=== PATIENT | male | born 1955 | race Caucasian/White ===

== ENCOUNTER 2018-08-28 09:57 | Outpatient (REF) | payer BC, SELFPAY ==
--- NOTE | 2018-08-28 09:10 | SKI_PTH ---
PATIENT: Nakul Tobin LOC: [facility] U#:[id number] AGE/SX: 63/M ROOM: RE08/28/[address]: Ti Cartagena DO : 1955 BED: DIS: 08/28/2018 SPEC #: [id number] RECD: 08/28/18 18:07 STATUS: [facility] REQ #: [id number] LEONCIO: 08/28/18 09:[address]: Ti Cartagena DEPT: Surgical Specimen RECD BY: Carol Bazan ENTERED: 08/28/18 18:07 SP TYPE: SKI OTHR DR: Rosi Santizo Tissues: 1 - SKIN BIOPSY(SHAVE/PUNCH) Procedures: SKIN LEVEL 4 Comments: [id number]
== END 2018-08-28 10:17 ==
LOC: LBN 09:57
PROVIDERS: PCP Nurse Practitioner Family; Visit Provider Otolaryngology Otolaryngology/Facial Plastic Surgery
DX: C44.219 Basal cell carcinoma of skin of left ear and external auricular canal (principal)
CPT/HCPCS: 88305

== ENCOUNTER 2019-04-05 00:34 | Outpatient (CLI) | payer BC, SELFPAY ==
--- NOTE | 2019-04-05 14:24 | DI.CT_ITS ---
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 No evidence of acute intracranial hemorrhage, mass effect, or midline shift. The orbital structures are unremarkable. The temporal bone structures appear intact. Calvarium: Normal. Visualized Paranasal sinuses/Mastoids: Clear. IMPRESSION: Normal cranial CT. DATA REPOSITORY: All CT scans at this facility are submitted to the National Radiology Data Registry (NRDR) Dose Index Registry (DIR) with the [employer] (ACR). RADIATION OPTIMIZATION: All CT scans at this facility use at least one of these dose optimization te chniques: automated exposure control; mA and/or kV adjustment per patient size (includes targeted exa ms where dose is matched to clinical indication); or iterative reconstruction.
== END 2019-04-05 00:54 ==
PROVIDERS: PCP Nurse Practitioner Family; Visit Provider Internal Medicine
DX: M25.50 Pain in unspecified joint (principal); H69.80 Other specified disorders of Eustachian tube, unspecified ear; J32.9 Chronic sinusitis, unspecified
CPT/HCPCS: 70450

== ENCOUNTER 2019-12-28 01:58 | Outpatient (CLI) | payer BC, SELFPAY ==
[2019-12-28 07:59] LABS: Abs Immature Grans 0.04 10^3/uL (0.0-0.06); Absolute Basophil Count 0.06 10^3/uL (0.0-0.2); Absolute Eosinophil Count 0.48 10^3/uL (0.0-0.7); Absolute Lymphocyte Count 2.38 10^3/uL (1.2-3.4); Absolute Monocyte Count 1.07 10^3/uL (0.1-0.8); Absolute Neutrophil Count 5.28 10^3/uL (1.2-6.7); Basophils % 0.6; Eosinophils % 5.2; HCT 41.8 % (40.0-50.0); HGB 14.5 g/dL (13.5-17.5); Immature Grans % 0.4; Lymphocytes % 25.6; MCH 32.1 pg (27.0-33.0); MCHC 34.7 % (32.0-36.0); MCV 92.5 fL (80-95); MPV 8.8 fL (8.0-11.0); Monocytes % 11.5; Neutrophils % 56.7; Nucleated RBC 0 %; Platelet Count 374 10^3/uL (130-400); RBC 4.52 10^6/uL (4.36-5.78); RDW 12.7 % (11.8-14.1); RDW-SD 43.4 fL; WBC 9.31 10^3/uL (4.4-10.8)
[2019-12-28 09:34] LABS: ALT 26 U/L (16-63); AST 17 U/L (15-37); Albumin 4.3 g/dL (3.4-5.0); Alkaline Phosphatase 58 U/L (46-116); Anion Gap 7.8 mmol/L (3-11); BUN 14 mg/dL (7-18); Bilirubin, Total 0.5 mg/dL (0.2-1.0); CO2 25.2 mmol/L (21.0-32.0); CREATININE 1.05 mg/dL (0.70-1.30); Calculated LDL 139 mg/dL (<100); Chloride 98 mmol/L (98-107); Cholesterol 203 mg/dL (<200); Folate 15.1 ng/mL (8.6-20.0); Glucose 104 mg/dL (74-106); HDL Cholesterol 54 mg/dL (40-60); Potassium 4.9 mmol/L (3.5-5.1); Sodium 131 mmol/L (136-145); Total Protein 6.6 g/dL (6.4-8.2); Triglyceride 54 mg/dL (<150); Vitamin B12 335 pg/mL (193-986)
[2019-12-28 09:46] LABS: C-Reactive Protein 0.13 mg/dL (0.0-0.3)
[2019-12-28 09:47] LABS: ESR 6 mm/hr (1-20)
[2019-12-31 12:26] LABS: Albumin 66.8 % (55.8-66.1); Total Protein 6.5 g/dL (6.3-8.2)
== END 2019-12-28 02:18 ==
PROVIDERS: PCP Nurse Practitioner Adult Health; Visit Provider Nurse Practitioner Adult Health
DX: R03.0 Elevated blood-pressure reading, without diagnosis of hypertension (principal); F10.10 Alcohol abuse, uncomplicated; R51 Headache; J34.89 Other specified disorders of nose and nasal sinuses
CPT/HCPCS: 36415; 80053; 80061; 85652; 82607; 82746; 84165; 85025; 86140

== ENCOUNTER 2020-01-23 01:08 | Outpatient (CLI) | payer BC, SELFPAY ==
[2020-01-23 10:55] LABS: Bilirubin Negative (Negative); Blood Negative (Negative); Clarity Clear (Clear); Glucose Negative (Negative); Ketones Negative (Negative); Leukocyte Esterase Negative (Negative); Nitrite Negative (Negative); Urobilinogen 0.2 EU/dL (Up TO 0.2)
[2020-01-23 11:49] LABS: Creatine Kinase 597 U/L (39-308); Sodium 131 mmol/L (136-145); TSH (W/Ref FT4) 0.65 uIU/mL (0.36-3.74); Uric Acid 4.3 mg/dL (3.5-7.2)
[2020-01-23 19:17] LABS: Rheumatoid Factor <8.6 IU/mL (<12.0)
[2020-01-24 15:59] LABS: ANA Interpretation Negative (Negative)
== END 2020-01-23 01:28 ==
PROVIDERS: PCP Nurse Practitioner Adult Health; Visit Provider Nurse Practitioner Adult Health
DX: R51.9 Headache, unspecified (principal); M79.10 Myalgia, unspecified site; M25.50 Pain in unspecified joint; G89.29 Other chronic pain; E87.1 Hypo-osmolality and hyponatremia; R77.8 Other specified abnormalities of plasma proteins; J34.89 Other specified disorders of nose and nasal sinuses
CPT/HCPCS: 36415; 82550; 81003; 84295; 84443; 84550; 86038; 86431

== ENCOUNTER 2020-02-11 08:44 | Day surgery (SDC) | payer BC, SELFPAY ==
[2020-02-11 08:54] VITALS: BP 154/86; PULSE 98; RESP 16; TEMP 36.3; O2SAT 100
--- NOTE | 2020-02-11 10:41 | SKI_PTH ---
PATIENT: Nakul Tobin LOC: [facility] U#:[id number] AGE/SX: 64/M ROOM: RE02/11/[address]: Jose A Salomon MD : 1955 BED: DIS: 02/11/2020 SPEC #: [id number] RECD: 02/11/20 16:41 STATUS: [facility] REQ #: [id number] LEONCIO: 02/11/20 10:[address]: Jose A Salomon DEPT: Surgical Specimen RECD BY: Carol Bazan ENTERED: 02/11/20 16:42 SP TYPE: NINA PATEL DR: Munira Lomax APRN Tissues: 1 - SKIN BIOPSY(SHAVE/PUNCH) Procedures: GROSS AND MICRO LEVEL 4 Comments: [id number]
[2020-02-11] MEDS: Lidocaine 2% Multi-Dose 50 ML VIAL (10:55)
--- NOTE | 2020-02-11 11:14 | PDOC.DSDIS_ITS ---
Discharge Plan Disposition Patient Disposition: HOME Condition: Good Discharge Details Reason For Visit: EXCISION MASS RRF Attending Provider: Jose A Salomon Primary Care Provider: Munira Lomax Home Meds and New Rx's Prescriptions: New ibuprofen 800 mg tablet 800 mg PO Q6H PRNQty: 14 RF: 0 No Action Advair HFA 115-21 mcg/actuation HFA aerosol inhaler 2 puff IH BID Qty: 12 RF: 11 albuterol sulfate [ProAir HFA] 8.5 GM HFA aerosol inhaler 2 puff Inhalation QID PRN RF: 0 Discharge Instructions Additional Instructions: Elevate R hand above heart level as much as possible overnite tonite. Wiggle fingers R hand 10 times/hour when awake to prevent swelling. Keep dressings dry and intact until return. Return to 's office in one week. May use R hand as much as your discomfort allows. Take ibuprofen as prescribed, for pain. Referrals: Jose A Salomon MD [ [facility] STAFF PHYSICIAN] - (f/u in one week.) Activity:: Activity as Tolerated Remove Dressings/Wound Care:: Do Not Remove Shower/Bathe:: Cover Diet:: As Tolerated Discharge Orders Discharge Orders: Discharge Order (Routine); Ordered 02/11/20 Ordered By: Jose A Salomon
--- NOTE | 2020-02-11 15:56 | ROE_ITS ---
Date of service: 02/11/20 Time of Service: 10:57 Operative Note Operative Note DATE OF PROCEDURE: 02/11/20 PRE-OP DIAGNOSIS: Subcutaneous mass right middle finger PROCEDURE: Excisional biopsy of subcutaneous mass dorsum of the right middle finger. SURGEON: Jsoe A Saloomn ANESTHESIA: local PATHOLOGY: other (Specimen consisting of the entire mass was sent for pathologic examination.) Patient was transported to: same day Patient's condition: stable Indications: This 64-year-old white male who developed a mass on the dorsum of his right middle finger some 3 years ago. As the mass enlarged he sought on a surgeon. An attempt at excision was made in 2018. He said the mass appeared to be recurring by the first postop visit. Continued to get larger over time. Not particularly painful. The mass appears to be subcutaneous and superficial to the extensor tendon over the proximal phalanx of the right middle finger. The mass does not interfere with function of the finger in flexion and extension. Mass was 2-1/2 cm x 2 cm x 2 cm. I felt that excisional biopsy was indicated. I thought that he may have a xanthoma of tendon sheath. I definitely thought it was a solid tumor clinically. Patient related that previous attempt at aspi ration was unsuccessful. Patient wished to have me proceed soon as possible. Procedure Description: Patient was taken the operating room on 02/11/2020 the right hand was prepped and draped free in usual sterile fashion. I infiltrated circumferentially around the mass on the dorsum of the right middle finger with 2% Xylocaine solution. I made an incision starting distal to the mass in the midline over the dorsum of the right ring finger. It began just proximal to the PIP joint. I then curved around the radial side of the mass with the incision and brought it back to the midline proximal to the mass incision was carried down to the extensor tendon. I then performed and excisional biopsy of the mass with sharp dissection to mobilize the soft tissues. I started proximally and peel the mass cleanly off the extensor tendon. I then proceeded to sharply dissect the mass from the overlying skin and subcutaneous tissue. Specimen was delivered for pathological examination. With epinephrine solution. Subcutaneous veins were cauterized. Skin edges were loosely approximated with horizontal mattress sutures interrupted 04 0 nylon suture material. Incision was dressed with Xeroform gauze followed by fluff gauze 4 x 4's between the fingers and around the right middle finger. This was followed by a 3 inch conform bandage and overwrapped with 2 inch Carlos bandage for compression. Patient taught procedure well and was discharged to the surge unit in good condition. Patient was discharged home from day surgery unit with instructions to try to elevate his right hand above heart level as much as possible overnight tonight. He is to keep his dressings intact and dry until he follows up with Dr. Salomon in 1 week for wound check. He is encouraged to wiggle his fingers 10 times an hour when awake. He may use his right hand is much as his discomfort allows. He should take Tylenol or ibuprofen for pain as needed.
== END 2020-02-11 11:35 | disposition home or self-care (01) ==
PROVIDERS: PCP Nurse Practitioner Adult Health; Visit Provider Orthopaedic Surgery
PROC: (CPT 11423; principal; 2020-02-11 10:45)
DX: D49.2 Neoplasm of unspecified behavior of bone, soft tissue, and skin (principal)
CPT/HCPCS: 11423; 88305

== ENCOUNTER 2020-04-09 02:44 | Outpatient (CLI) | payer BC, SELFPAY ==
[2020-04-09 08:16] LABS: Hemoglobin A1C 5.5 % (<5.7)
[2020-04-09 08:59] LABS: Creatine Kinase 312 U/L (39-308)
== END 2020-04-09 03:04 ==
PROVIDERS: PCP Nurse Practitioner Adult Health; Visit Provider Psychiatry & Neurology Neurology
DX: G62.9 Polyneuropathy, unspecified (principal); R74.8 Abnormal levels of other serum enzymes
CPT/HCPCS: 36415; 82550; 83036

== ENCOUNTER 2021-01-16 01:01 | Outpatient (CLI) | payer BC, SELFPAY ==
[2021-01-16 08:45] LABS: ALT 28 U/L (16-63); AST 19 U/L (15-37); Albumin 4.1 g/dL (3.4-5.0); Alkaline Phosphatase 68 U/L (46-116); Anion Gap 7.3 mmol/L (3-11); BUN 10 mg/dL (7-18); Bilirubin, Total 0.5 mg/dL (0.2-1.0); CO2 30.7 mmol/L (21.0-32.0); CREATININE 1.1 mg/dL (0.70-1.30); Chloride 97 mmol/L (98-107); Glucose 97 mg/dL (74-106); Sodium 135 mmol/L (136-145); TSH (W/Ref FT4) 0.72 uIU/mL (0.36-3.74); Total Protein 6.9 g/dL (6.4-8.2); Vitamin B12 311 pg/mL (193-986)
[2021-01-18 18:18] LABS: Anaplasma phagocytophilum Negative (Negative); B. miyamotoi PCR Negative (Negative); Babesia divergens/MO-1 Negative (Negative); Babesia duncani Negative (Negative); Babesia microti Negative (Negative); Ehrlichia chaffeensis Negative (Negative); Ehrlichia ewingii/canis Negative (Negative); Ehrlichia muris eauclairensis Negative (Negative)
[2021-01-19 11:51] LABS: Lyme Ab w Rflx to Lyme Confirm Negative (Negative)
== END 2021-01-16 01:02 | disposition home or self-care (01) ==
LOC: LBO 01:01
PROVIDERS: PCP Nurse Practitioner Adult Health; Visit Provider Nurse Practitioner Adult Health
DX: J44.9 Chronic obstructive pulmonary disease, unspecified; G62.9 Polyneuropathy, unspecified; E87.1 Hypo-osmolality and hyponatremia; R51.9 Headache, unspecified; F10.10 Alcohol abuse, uncomplicated; F17.200 Nicotine dependence, unspecified, uncomplicated; Z51.81 Encounter for therapeutic drug level monitoring
CPT/HCPCS: 36415; 80053; 87798; 82607; 82746; 84443; 86618

== ENCOUNTER → 2021-07-20 10:49 | Outpatient (BNVA) | payer MEDICARE, SELFPAY | PROVIDERS: PCP Nurse Practitioner Adult Health; Referring Provider Nurse Practitioner Adult Health; Visit Provider Psychiatry & Neurology Neurology | DX: M54.2 Cervicalgia (principal); M25.511 Pain in right shoulder; M25.512 Pain in left shoulder; G62.9 Polyneuropathy, unspecified; F10.10 Alcohol abuse, uncomplicated; E87.1 Hypo-osmolality and hyponatremia; R74.8 Abnormal levels of other serum enzymes | CPT/HCPCS: 99214 ==

== ENCOUNTER → 2021-10-28 10:13 | Outpatient (BNVA) | payer MEDICARE, SELFPAY | PROVIDERS: PCP Nurse Practitioner Adult Health; Referring Provider Nurse Practitioner Adult Health; Visit Provider Psychiatry & Neurology Neurology | DX: M54.2 Cervicalgia (principal); M25.511 Pain in right shoulder; M25.512 Pain in left shoulder; G60.9 Hereditary and idiopathic neuropathy, unspecified; F10.10 Alcohol abuse, uncomplicated; R74.8 Abnormal levels of other serum enzymes; E87.1 Hypo-osmolality and hyponatremia | CPT/HCPCS: 99214 ==

== ENCOUNTER → 2022-03-09 15:06 | Outpatient (CLI) | payer MEDICARE, SELFPAY ==
--- NOTE | 2022-03-09 14:00 | DI.RAD_ITS ---
Exam(s) XR CHEST 2V PA LATERAL EXAM: XR CHEST 2V PA LATERAL CLINICAL HISTORY: evaluate for pathology R05.3 CHRONIC COUGH TECHNIQUE: 2D digital imaging was performed of the chest. Two images were obtained. PA and lateral views were obtained. COMPARISON: CR CHEST 2 VIEWS PA,LAT from 02/09/2011 CR CHEST 2 VIEWS PA,LAT from 12/01/2011 CR CHEST 2 VIEWS PA,LAT from 05/08/2014 FINDINGS: MEDIASTINUM: Normal. HEART: Normal. PULMONARY VASCULATURE: Normal. LUNGS: No focal consolidating infiltrates. There is unchanged scarring seen on the lateral view ante riorly. The lungs appear hyperinflated with flattened diaphragms consistent with underlying COPD. PLEURAL SPACE: No pleural effusion or pneumothorax. BONE:Within normal limits for the patient's age. OTHER FINDINGS:Normal. IMPRESSION: No acute pulmonary findings. DATA REPOSITORY: RADIATION DOSE DELIVERED:
== END ==
PROVIDERS: PCP Nurse Practitioner Adult Health; Visit Provider Nurse Practitioner Family
DX: R05.3 Chronic cough (principal)
CPT/HCPCS: 71046

== ENCOUNTER 2023-11-21 03:30 | Outpatient (CLI) | payer MEDICARE, SELFPAY ==
[2023-11-21 14:37] LABS: HCT 40.8 % (40.0-50.0); HGB 14.3 g/dL (13.5-17.5); MCH 33.2 pg (27.0-33.0); MCV 95 fL (80-95); MPV 8.3 fL (8.0-11.0); Platelet Count 385 10^3/uL (130-400); RBC 4.31 10^6/uL (4.36-5.78); RDW 12.8 % (11.8-14.1); RDW-SD 44.7 fL; WBC 10.42 10^3/uL (4.4-10.8)
[2023-11-21 14:50] LABS: Anion Gap 9.3 mmol/L (3-11); BUN 14 mg/dL (7-18); CO2 26.7 mmol/L (21.0-32.0); CREATININE 1.3 mg/dL (0.70-1.30); Calcium 9.1 mg/dL (8.5-10.1); Chloride 95 mmol/L (98-107); Estimated GFR 60.21 (mL/min/1.73m2); Glucose 176 mg/dL (74-106); Potassium 4.4 mmol/L (3.5-5.1); Sodium 131 mmol/L (136-145)
== END 2023-11-21 03:31 | disposition home or self-care (01) ==
LOC: LBO 03:30
PROVIDERS: PCP Nurse Practitioner Adult Health; Referring Provider Nurse Practitioner Family; Visit Provider Nurse Practitioner Family
DX: J44.9 Chronic obstructive pulmonary disease, unspecified (principal); Z01.818 Encounter for other preprocedural examination
CPT/HCPCS: 36415; 80048; 85027

== ENCOUNTER 2024-01-20 14:50 | Outpatient (CLI) | payer MEDICARE, SELFPAY ==
--- NOTE | 2024-01-20 14:48 | DI.RAD_ITS ---
Exam(s) XR CERVICAL SP MCCULLOUGH TRAUMA 2-3V EXAM: XR CERVICAL SP MCCULLOUGH TRAUMA 2-3V CLINICAL HISTORY: SPASTICITY R25.2 SPINAL STENOSIS CERVICAL W/ RADICULOPATHY M48.0 M54.12. TECHNIQUE: 2D digital imaging was performed. Three views. AP and lateral views in flexion and exte nsion. COMPARISON: No exams were available for comparison FINDINGS: BONES: No fracture or destructive lesion. Vertebral bodies show endplate osteophytes. Facet degenera tive changes throughout. DISKS: Moderate disc space narrowing at C5-6 and C6-7. ALIGNMENT: Limited range of motion with flexion or extension. No evidence of subluxation. Straighte elizabet of the normal cervical lordosis wrote lordosis secondary to degenerative changes. SOFT TISSUE: Normal. The lung apices are clear. IMPRESSION: Degenerative disc changes and facet degenerative changes. Limited range of motion. DATA REPOSITORY: RADIATION DOSE DELIVERED:
== END 2024-01-20 15:10 ==
LOC: DI 14:50
PROVIDERS: PCP Nurse Practitioner Adult Health; Visit Provider Neurological Surgery
DX: R25.2 Cramp and spasm (principal); M48.02 Spinal stenosis, cervical region
CPT/HCPCS: 72040

== ENCOUNTER 2024-02-01 05:11 | Outpatient (CLI) | payer MEDICARE, SELFPAY ==
[2024-02-03 13:25] LABS: Sodium 133 mmol/L (136-145)
== END 2024-02-01 05:12 | disposition home or self-care (01) ==
LOC: LBO 05:11
PROVIDERS: PCP Nurse Practitioner Adult Health; Visit Provider Neurological Surgery
DX: G45.9 Transient cerebral ischemic attack, unspecified (principal)
CPT/HCPCS: 36415; 84295

== ENCOUNTER 2024-08-07 15:43 | Outpatient (CLI) | payer MEDICARE, SELFPAY ==
--- NOTE | 2024-08-07 14:45 | DI.RAD_ITS ---
Exam(s) XR CHEST 2V PA LATERAL EXAM: XR CHEST 2V PA LATERAL CLINICAL HISTORY: Known lung Ca, acute dypsnea R06.00 TECHNIQUE: 2D digital imaging was performed of the chest. Two images were obtained. PA and lateral views were obtained. COMPARISON: CR XR CHEST 2V PA LATERAL from 03/09/2022 FINDINGS: MEDIASTINUM: Normal. HEART: Normal. PULMONARY VASCULATURE: Normal. LUNGS: The lungs are hyperinflated with flattened diaphragms consistent with underlying COPD. There is again seen scarring anteriorly in the chest on the lateral view. No focal consolidating infiltrat es are present. There is a question of a new ovoid density in the right upper lobe measuring 2 cm. PLEURAL SPACE: No pleural effusion or pneumothorax. BONE:Within normal limits for the patient's age. OTHER FINDINGS:Normal. IMPRESSION: 1. Question of a new 2 cm ovoid density in the right upper lobe. CT scan of the chest may be obtaine d for further evaluation. 2. No focal consolidating infiltrates are seen. 3. Underlying COPD. Unexpected findings DATA REPOSITORY: RADIATION DOSE DELIVERED:
== END 2024-08-07 16:03 ==
LOC: DI 15:44
PROVIDERS: PCP Nurse Practitioner Adult Health; Visit Provider Family Medicine
DX: R06.00 Dyspnea, unspecified (principal)
CPT/HCPCS: 71046

== ENCOUNTER 2024-08-10 11:42 | Emergency (ER) | payer MEDICARE, SELFPAY ==
[2024-08-10] VITALS (18 sets, daily range): BP systolic 122–179; BP diastolic 62–95; PULSE 88–110; RESP 5–28; TEMP 36.8; O2SAT 92–98
--- NOTE | 2024-08-10 11:45 | RT.EKG_ITS ---
APPROVED REPORT Exam: Resting ECG Reason for Exam: dyspnea Patient Location: E HR:105 bpm ECG Measurements Heart Rate 105 AXIS [place] 159 P 99 QRSd 133 QRS 63 QT 327 T 60 QTc 432 Conclusion Sinus tachycardia RBBB non specific st depressions no stemi
--- NOTE | 2024-08-10 11:45 | DI.CT_ITS ---
Exam(s) CT CHEST PE CTA EXAM: CT CHEST PE CTA CLINICAL HISTORY: sob. TECHNIQUE: Imaging Protocol: CT angiography of the chest was performed using pulmonary embolus katrina col. Multi planar reconstructions were performed. CONTRAST MATERIAL: Intravenous: Omnipaque 350 Contrast volume: 65 cc COMPARISON: CR XR CHEST 2V PA LATERAL from 03/09/2022 CR XR CHEST 2V PA LATERAL from 08/07/2024 FINDINGS: CHEST: PULMONARY ARTERIES: There are no intraluminal filling defects to suggest acute pulmonary emboli.No ev idence of pulmonary fracture LUNGS: There is a concerning nodule in the right upper lobe measuring 1.7 cm wide by 1.3 cm AP by 1.4 cm craniocaudal. This is noncalcified and appears spiculated. Some overlying infiltrate is noted. This nodule is suspicious for malignancy.. There are no nodules in the left lung. There are no ple ural effusions. MEDIASTINUM: There is a large central mediastinal mass which deviates the trachea towards the right s kirk and causes significant narrowing of the trachea. This mass in the mediastinum measures approxima tely 6.7 cm AP by 5 cm wide by 5 cm craniocaudal. There is slightly enlarged lymph nodes in the righ t hilum. There is no prominent subcarinal adenopathy. There is some circumferential thickening of t he esophagus.Partially visualized thyroid appears unremarkable. CARDIAC: Heart size is upper normal. There is no pericardial effusion.Caliber of the ascending thora cic aorta is minimally prominent measuring 3.8 cm. No dissection. No pericardial effusion. There is no significant shift of the interventricular septum. PARTIALLY VISUALIZED UPPERMOST ABDOMEN: No obvious findings OSSEOUS: No significant osseous lesions.No fractures.. IMPRESSION: 1. No evidence of acute pulmonary emboli. No evidence of pulmonary infarction.No pleural effusions. 2. However, there is a malignant appearing spiculated 17 x 13 x 14 mm nodule in the right upper lobe and there is a large central paratracheal mediastinal mass which significantly deviates the trachea t owards the right side and narrows the trachea. This is most probably a malignant mediastinal mass, p ossibly adenopathy possibly related to the right upper lobe lung nodule. 3. There is some circumferential thickening of the esophagus along a long segment of the esophagus. Report called by myself to ER physician 08/10/2024 at 2:11 p.m. RADIATION DOSE DELIVERED: 63.56mGy.cm Total DLP DATA REPOSITORY: All CT scans at this facility are submitted to the National Radiology Data Registry (NRDR) Dose Index Registry (DIR) with the [employer] (ACR). RADIATION OPTIMIZATION: All CT scans at this facility use at least one of these dose optimization te chniques: automated exposure control; mA and/or kV adjustment per patient size (includes targeted exa ms where dose is matched to clinical indication); or iterative reconstruction.
[2024-08-10] MEDS: Sodium Chloride 0.9% for Inhalation 3 ML VIAL (12:14)
[2024-08-10] MEDS: Albuterol/Ipratropium 3 ML UPD VIAL UPD ×3 (12:14)
[2024-08-10] MEDS: methylPREDNISolone SUCC 125 MG VIAL IVP (12:15)
[2024-08-10 12:24] LABS: Abs Immature Grans 0.24 10^3/uL (0.0-0.06); BE (Venous) 3 mmol/L (-2-3); Basophils % 0.2 %; HCO3 (Venous) 27 mmol/L (23-28); HCT 28.9 % (40.0-50.0); HGB 9.6 g/dL (13.5-17.5); MCHC 33.2 % (32.0-36.0); MCV 81 fL (80-95); MPV 7.4 fL (8.0-11.0); Monocytes % 6.6 %; Neutrophils % 89.2 %; O2 Sat (Venous) 72 %; RBC 3.55 10^6/uL (4.36-5.78); RDW 14.1 % (11.8-14.1); RDW-SD 41.5 fL; TCO2 (Venous) 26 mmol/L (24-29); WBC 24.42 10^3/uL (4.4-10.8); pCO2 (Venous) 41 mmHg (41-51); pH (Venous) 7.43 (7.31-7.41); pO2 (Venous) 39 mmHg
[2024-08-10 12:42] LABS: Absolute Basophil Count 0.05 10^3/uL (0.0-0.2); Absolute Lymphocyte Count 0.73 10^3/uL (1.2-3.4); Absolute Monocyte Count 1.61 10^3/uL (0.1-0.8); Absolute Neutrophil Count 21.78 10^3/uL (1.2-6.7)
[2024-08-10 12:54] LABS: ALT 32 U/L (16-63); AST 26 U/L (15-37); Albumin 2.9 g/dL (3.4-5.0); Alkaline Phosphatase 108 U/L (46-116); Anion Gap 10.1 mmol/L (3-11); BUN 14 mg/dL (7-18); Bilirubin, Total 0.4 mg/dL (0.2-1.0); CO2 25.9 mmol/L (21.0-32.0); CREATININE 0.8 mg/dL (0.70-1.30); Calcium 9.6 mg/dL (8.5-10.1); Chloride 90 mmol/L (98-107); Glucose 134 mg/dL (74-106); NT-proBNP 225 pg/mL (<300); Potassium 4.6 mmol/L (3.5-5.1); Sodium 126 mmol/L (136-145); Total Protein 7.2 g/dL (6.4-8.2); Troponin I 7 ng/L (<or=76)
[2024-08-10 12:58] LABS: Diff Comment Diff Reviewed; Platelet Count 652 10^3/uL (130-400); RBC Morphology Normal
[2024-08-10] MEDS: Normal Saline - Diluent 50 ML VIAL IJ (13:33)
[2024-08-10] MEDS: Omnipaque 350 MG/ML 100 ML BTL IJ (13:33)
--- NOTE | 2024-08-10 13:36 | W.ED.GENAD ---
Discharge Plan Disposition Patient Disposition: Transfer-Acute Inpatient Care Specific Acute Inpt Facility: [facility] Condition: Critical Discharge Details Clinical Impression: Metastatic non-small cell lung cancer, Mediastinal adenopathy, Breath shortness, Acquired tracheal stenosis, Tracheal obstruction Primary Care Provider: Munira Lomax ED Provider: Chapis Miller Home Meds and New Rx's Prescriptions: No Action magnesium oxide 400 mg magnesium tablet 400 mg PO DAILY pyridoxine (vitamin B6) 500 mg tablet 500 mg PO DAILY prednisone 20 mg tablet 20 mg PO DAILY 5 Days Qty: 5 0RF cyanocobalamin (vitamin B-12) 1,000 mcg capsule 1,000 mcg PO DAILY Qty: 90 3RF Rx Instructions: For Low-normal Vit B12 acetaminophen 325 mg tablet See Rx Instructions PO Q6H PRN Rx Instructions: Take 3 tablets orally every 6 hours PRN; diazepam 5 mg tablet 5 mg PO Q6H PRN (Reason: muscle spasm) baclofen 10 mg tablet 10 mg PO TID Patient Comments: [facility] [place] [facility] note jwo albuterol sulfate 90 mcg/actuation HFA aerosol inhaler 2 puff inhalation Q4H PRN (Reason: bronchospasm) Qty: 6.7 1RF Rx Instructions: 2 puffs inhalation Q4H PRN Shortness of breath or wheezing fluticasone propion-salmeterol [Advair HFA] 115-21 mcg/actuation HFA aerosol inhaler See Rx Instructions .ROUTE .COMPLEX Qty: 12 11RF Dose Instruction: INHALE TWO PUFFS BY MOUTH TWICE A DAY FOR COPD Rx Instructions: INHALE TWO PUFFS BY MOUTH TWICE A DAY FOR COPD HPI General Date/Time Provider Initiated Documentation: 08/10/24 11:45. Limitations to Documentation: no limitations. Information obtained by: patient and old records reviewed. HPI Narrative: 69-year-old gentleman with past medical history of metastatic non-small cell lung cancer currently on radiation therapy presents for evaluation of shortness of breath. He reports that he was feeling fine yesterday. Denies any fever. He denies any productive cough. He Reports That He used his inhalers multiple times and states he felt like it is as if he did not use them at all. He denies any chest pain. Related Data Home Medications ?Medication ?Instructions ?Recorded ?Confirmed cyanocobalamin (vitamin B-12) 1,000 mcg PO DAILY #90 caps 01/19/21 08/10/24 1,000 mcg capsule magnesium oxide 400 mg PO DAILY 11/17/23 08/10/24 pyridoxine (vitamin B6) 500 mg 500 mg PO DAILY 11/17/23 08/10/24 tablet acetaminophen 325 mg tablet See Rx Instructions PO Q6H PRN 01/30/24 08/10/24 diazepam 5 mg tablet 5 mg PO Q6H PRN muscle spasm 01/30/24 08/10/24 baclofen 10 mg tablet 10 mg PO TID 05/02/24 08/10/24 albuterol sulfate 90 mcg/actuation 2 puff inhalation Q4H PRN 08/07/24 08/10/24 aerosol inhaler bronchospasm #6.7 grams prednisone 20 mg tablet 20 mg PO DAILY 5 days #5 tabs 08/07/24 08/10/24 Advair HFA 115 mcg-21 See Rx Instructions .Route 08/08/24 08/10/24 mcg/actuation aerosol inhaler .COMPLEX #12 grams (fluticasone propion-salmeterol) Previous Rx's ?Medication ?Instructions ?Recorded cyanocobalamin (vitamin B-12) 1,000 mcg PO DAILY #90 caps 01/19/21 1,000 mcg capsule albuterol sulfate 90 mcg/actuation 2 puff inhalation Q4H PRN 08/07/24 aerosol inhaler bronchospasm #6.7 grams prednisone 20 mg tablet 20 mg PO DAILY 5 days #5 tabs 08/07/24 Advair HFA 115 mcg-21 See Rx Instructions .Route 08/08/24 mcg/actuation aerosol inhaler .COMPLEX #12 grams (fluticasone propion-salmeterol) Allergies Allergy/AdvReac Type Severity Reaction Status Date / Time Penicillins AdvReac yeast Verified 08/10/24 11:52 infection in mouth & open sores Tetracyclines AdvReac yeast Verified 08/10/24 11:52 infection in mouth & open sores General Stated Complaint: SOB RONI: 3 Exam Narrative Exam Narrative: review of Systems: All systems reviewed & are unremarkable except as noted in HPI and below Well-developed, appears uncomfortable hoarse voice, unable to speak in >1-2 words large mass over right lateral scalp Tachycardic Tachypnea with increased respiratory effort, prolonged expiratory phase with expiratory wheezing Course Vital Signs Vital signs: Vital Signs Temperature 36.8 C 08/10/24 11:45 Pulse 110 H 08/10/24 11:45 Respiratory Rate 20 08/10/24 11:45 Blood Pressure 170/83 H 08/10/24 11:45 Pulse Oximetry 96 08/10/24 11:45 Temperature 36.8 C 08/10/24 11:45 Temperature Source Oral 08/10/24 11:45 Pulse 110 H 08/10/24 11:45 Respiratory Rate 18 08/10/24 12:50 Respiratory Effort Short of Breath 08/10/24 12:50 Respiratory Depth Normal 08/10/24 12:50 Respiratory Pattern Normal 08/10/24 12:50 Blood Pressure 170/83 H 08/10/24 11:45 Blood Pressure Position Sitting 08/10/24 11:45 Pulse Oximetry 96 08/10/24 11:45 Oxygen Delivery Method Room Air 08/10/24 11:45 Oxygen Flow Rate 0 08/10/24 11:45 Lab/Test Results Lab/Test Results: Laboratory Tests Range/Units 08/10/24 12:15 WBC (4.4-10.8) 10^3/uL 24.42 H RBC (4.36-5.78) 10^6/uL 3.55 L Hgb (13.5-17.5) g/dL 9.6 L Hct (40.0-50.0) % 28.9 L MCV (80-95) fL 81 MCH (27.0-33.0) pg 27.0 MCHC (32.0-36.0) % 33.2 RDW (11.8-14.1) % 14.1 Plt Count (130-400) 10^3/uL 652 H MPV (8.0-11.0) fL 7.4 L Immature Gran % % 1.0 Neutrophils % % 89.2 Lymphocytes % % 3.0 Monocytes % % 6.6 Eosinophils % % 0.0 Basophils % % 0.2 Nucleated RBC % (0.0-0.3) % 0.0 Absolute Neutrophils (1.2-6.7) 10^3/uL 21.78 H Absolute Lymphocytes (1.2-3.4) 10^3/uL 0.73 L Absolute Monocytes (0.1-0.8) 10^3/uL 1.61 H Absolute Eosinophils (0.0-0.7) 10^3/uL 0.00 Absolute Basophils (0.0-0.2) 10^3/uL 0.05 RBC Morphology Normal VBG pH (7.31-7.41) 7.43 H VBG pCO2 (41-51) mmHg 41 VBG pO2 mmHg 39 VBG HCO3 (23-28) mmol/L 27 VBG Total CO2 (24-29) mmol/L 26 VBG O2 Saturation % 72 VBG Base Excess (-2-3) mmol/L 3 Sodium (136-145) mmol/L 126 L Potassium (3.5-5.1) mmol/L 4.6 Chloride (98-107) mmol/L 90 L Carbon Dioxide (21.0-32.0) mmol/L 25.9 Anion Gap (3-11) mmol/L 10.1 BUN (7-18) mg/dL 14 Creatinine (0.70-1.30) mg/dL 0.8 Est GFR (CKD-EPI 2020) (mL/min/1.73m2) 96.40 Glucose (74-106) mg/dL 134 H Calcium (8.5-10.1) mg/dL 9.6 Magnesium (1.8-2.4) mg/dL 2.0 Total Bilirubin (0.2-1.0) mg/dL 0.4 AST (15-37) U/L 26 ALT (16-63) U/L 32 Alkaline Phosphatase (46-116) U/L 108 Troponin I (<or=76) ng/L 7 NT-Pro-B Natriuret Pep (<300) pg/mL 225 Total Protein (6.4-8.2) g/dL 7.2 Albumin (3.4-5.0) g/dL 2.9 L Medical Decision Making Emergent evaluation of shortness of breath. Patient has known metastatic lung cancer on radiation therapy. Initial differential includes reactive airway, worsened malignancy, pulmonary embolism, postobstructive pneumonia. Patient has no acute symptoms. EKG reviewed and independently interpreted: Sinus tachycardia [address] changes, no STEMI. He is not hypoxic but working fairly hard to breathe. Bronchodilator treatments and steroids have been given. Will check lab work and get CT imaging. I have reviewed his most recent outpatient imaging and noted there are concerns for metastatic disease and worsened malignancy on last chest x-ray. Lab work reviewed, significant leukocytosis of 24. Hemoglobin 9.6 which is significantly lower than prior. He also has new hyponatremia of 126. Remainder of his electrolytes are unremarkable. Troponin and BNP are not elevated. Chest CT reviewed with the radiologist. There is concern for significant worsening of mediastinal mass that is causing rightward deviation and significant narrowing of the trachea, down to 1-2mm. Based on prior imaging report, this mass is almost doubled in size. With additional new lymphadenopathy noted. Patient has been evaluated by [facility] thoracic surgery. I have sent images and reached out to them for consultation and follow-up plan regarding the patient. On reassessment after the breathing treatment, the patient is feeling better, he still has hoarseness and change to his voice, but no additional tachypnea or respiratory distress is noted. Discussed wtih Dr. Puente, pulm interventionalist, at [facility] and medical policy specialist. Patient accepted for emergent ED transfer for management at [facility] given central airway obstruction. Recommend nebs, bipap as needed during transport. patient updated on plan. Transported emergently via product marketing specialist. Quality:SDOH Health Related Social Needs: No Data to Display PFSH All Active Problems (Updated 08/10/24 @ 15:45 by Chapis Miller MD) Tracheal obstruction (Acute) Acquired tracheal stenosis (Acute) Breath shortness (Acute) Acute dyspnea (Acute) High risk medication use (Acute 07/17/24) [facility] Hem Onc - Raoul Phelan MD Secondary malignant neoplasm of bone (Acute) 07/11/24 [facility] Rad Onc note Metastatic non-small cell lung cancer (Acute ~07/10/24) [facility] Thoracic Surg Subcutaneous nodule of head (Acute) Mediastinal adenopathy (Acute) Lung nodule (Acute) Abnormal findings on imaging test (Acute) Hoarseness, chronic (Acute) Cervical myelopathy (Acute) [facility] Neurosurgery 05/11/24 Pre-op exam (Acute) Axonal neuropathy (Acute) [facility] Neuro 07/21/23 IFG (impaired fasting glucose) (Acute) [facility] Neuro 07/21/23 Spinal stenosis, lumbar region with neurogenic claudication (Acute) [facility] Neurosurgery 06/20/23 Carpal tunnel syndrome on left (Acute) [facility] Neuro 06/10/23 Other spondylosis with radiculopathy, lumbar region (Acute) 2/1/24 Neurology, Dr Dewey. Pt had abnormal MRI lumbar spine Chronic bilateral low back pain with right-sided sciatica (Acute) [facility] Neuro-04/05/23 Cervical disc disorder with radiculopathy, cervicothoracic region (Acute) [facility] Neuro-04/05/23 S/P Laminoplasty 01/25/2024 at [facility] done by Dr.Ji-Suk Harsh Evans 03/09/24 F/U Neurosurgery Chronic myofascial pain (Chronic) Head, neck & shoulders Bilateral leg pain (Chronic) Peripheral neuropathy; ?PAD, ABIs-->normal 02/2021 (see scanned) Actinic keratosis due to exposure to sunlight (Acute) Derm manages; L helix, L nose Pressure in head (Chronic) Neck and shoulder pain (Chronic) Peripheral neuropathy (Chronic) RX Gabapentin Tendon xanthoma (Acute) Right Middle Finger Hyponatremia (Acute) suspect chronic? 131 x3 in 2019 Frontal sinus pain (Acute) Chronic head pain (Chronic) Snoring (Chronic) No apnea. Elevated BP without diagnosis of hypertension (Acute) Basal cell carcinoma (BCC) of left ear (Chronic) Derm manages--L helix (path 08/28/2018); Dr. Cartagena; Dr. Wyatt magaña; wears hat Tobacco use disorder (Chronic) 2 PPD started in adolescense Alcohol abuse (Chronic) Beer; 2-4 servings per day COPD (chronic obstructive pulmonary disease) (Chronic) Long-term hx of nicotine Medical History (Updated 08/10/24 @ 15:45 by Chapis Miller MD) History of basal cell carcinoma (BCC) Dr. Schneider Spasticity [facility] Neuro Epidermal inclusion cyst Elevated CPK History of sciatica Intermittent since ~1980s; no recent flares History of broken nose Sinusitis ? related to Sinusitis Surgical History (Updated 05/15/24 @ 19:38 by Rossana Rodriguez) H/O cervical spine surgery C3-6 Laminoplasty [facility] Neurosurgery S/P Mohs surgery for basal cell carcinoma (~04/21/23) L upper helical rim (ear) History of removal of cyst R middle finger; Ramirez History of surgical removal of skin lesion Basal cell L ear Family History Mother Breast cancer Dx'ed late 70s and survived Dementia From dementia Depression Maternal Grandfather Diabetes Grandson No problems noted. Father Unknown family medical history Social History Smoking/Tobacco Use Status: Current every day Tobacco: How many years used: 40 Quit status: not considering quitting Smoking risk assessment performed?: Yes Alcohol Intake: current Alcohol Intake frequency: 0-2 drinks per day Alcohol type: beer Drug use: Never Substance use type: does not use Adopted: No Caregiver/Support person: No Foster care: No Household members: spouse, children and other Details: Lives with (Nelly) and has 3 sons, youngest lives with him Housing: house Number of Children: 3 number of grandchildren: 2 Communication Needs: None and Corrective Lenses Education Level: high school Do you need help understanding health information?: Rarely current occupation: [employer], Self-Employed; [employer] license Pets and animals: Yes (2) Pets and animals: dog(s) Sexually active: Yes Do you think of yourself as: straight/heterosexual Current gender identity: male What is your relationship status?: How often do you talk on the phone with friends or family?: three or more times per week How often do you get together with friends or relatives?: three or more times per week Do you belong to any clubs or organized social groups?: no Panel score (0-1 are the most socially isolated patients): 2 What type of physical activity do you participate in: walking Duration: > 90 minutes/day Frequency: 5-6 times per week Special jonn needs: No Seatbelt use: sometimes Helmet use: No Drive intox or ride w/intox stock driver: No Do you feel safe at home: Yes Do you feel safe in your relationship?: Yes PAWSS Have you Been Recently Intoxicated or Drunk Within the Last 30 days?: No Have you Ever Experienced Previous Episodes of Alcohol Withdrawal?: No Have you ever Experienced Withdrawal Seizures?: No Have you ever Experienced Delirium Tremens(DT)s?: No Have you ever undergone Alcohol Rehabilitation Treatment (i.e, inpt ot outpatient treatment programs)?: No Have you ever Experienced Blackouts?: No Have you ever Combined Alcohol with other Downers within the last 90 days?: No Have you ever Combined Alcohol with any other Substance of Abuse during the last 90 days?: No Positive Blood Alcohol level on Presentation? [PCS.BAL]: No Evidence of Increased Autonomic Activity (i.e. HR>120, tremor, sweating, agitation, nausea)?: No Result: 0
[2024-08-10 14:12] LABS: Troponin I 6 ng/L (<or=76)
== END 2024-08-10 16:25 | disposition short-term general hospital (02) ==
PROVIDERS: Emergency Provider Emergency Medicine; PCP Nurse Practitioner Adult Health
DX: J39.8 Other specified diseases of upper respiratory tract (principal); D72.829 Elevated white blood cell count, unspecified; R06.02 Shortness of breath; C34.90 Malignant neoplasm of unspecified part of unspecified bronchus or lung; E87.1 Hypo-osmolality and hyponatremia; D64.9 Anemia, unspecified
CPT/HCPCS: 99285 ×2; 94640; 96374; 71275; 80053; 82805; 93005; 83735; 83880; 84484; 85025; 93010; J2919; J3490; J7620

== ENCOUNTER 2024-08-20 02:40 | Outpatient (CLI) | payer MEDICARE, SELFPAY ==
[2024-08-20 07:15] LABS: Abs Immature Grans 0.18 10^3/uL (0.0-0.06); Absolute Eosinophil Count 0.02 10^3/uL (0.0-0.7); Absolute Lymphocyte Count 1.16 10^3/uL (1.2-3.4); Absolute Neutrophil Count 13.79 10^3/uL (1.2-6.7); Basophils % 0.2 %; Eosinophils % 0.1 %; HCT 28.8 % (40.0-50.0); HGB 9.4 g/dL (13.5-17.5); Immature Grans % 1.1 %; Lymphocytes % 6.8 %; MCHC 32.6 % (32.0-36.0); MCV 83 fL (80-95); MPV 7.7 fL (8.0-11.0); Monocytes % 10.9 %; Neutrophils % 80.9 %; Platelet Count 516 10^3/uL (130-400); RBC 3.48 10^6/uL (4.36-5.78); RDW 15.2 % (11.8-14.1); RDW-SD 45.2 fL; WBC 17.04 10^3/uL (4.4-10.8)
[2024-08-20 07:17] LABS: Absolute Basophil Count 0.03 10^3/uL (0.0-0.2); Absolute Monocyte Count 1.86 10^3/uL (0.1-0.8)
[2024-08-20 07:35] LABS: Diff Comment Diff Reviewed; RBC Morphology Normal
[2024-08-20 07:57] LABS: ALT 34 U/L (16-63); AST 21 U/L (15-37); Albumin 2.5 g/dL (3.4-5.0); Alkaline Phosphatase 103 U/L (46-116); Anion Gap 5.9 mmol/L (3-11); BUN 12 mg/dL (7-18); Bilirubin, Total 0.4 mg/dL (0.2-1.0); CO2 27.1 mmol/L (21.0-32.0); Calcium 9.1 mg/dL (8.5-10.1); Chloride 94 mmol/L (98-107); Estimated GFR 81.98 (mL/min/1.73m2); FREE T4 1.04 ng/dL (0.76-1.46); Glucose 113 mg/dL (74-106); Magnesium 1.9 mg/dL (1.8-2.4); Potassium 4.1 mmol/L (3.5-5.1); Sodium 127 mmol/L (136-145); TSH 2.19 uIU/mL (0.36-3.74); Total Protein 6.5 g/dL (6.4-8.2)
== END 2024-08-20 02:41 | disposition home or self-care (01) ==
LOC: LBO 02:40
PROVIDERS: PCP Nurse Practitioner Adult Health; Visit Provider Internal Medicine Medical Oncology
DX: Z79.899 Other long term (current) drug therapy (principal); C34.11 Malignant neoplasm of upper lobe, right bronchus or lung; C79.51 Secondary malignant neoplasm of bone
CPT/HCPCS: 36415; 80053; 83735; 84439; 84443; 85025

== ENCOUNTER 2024-08-27 04:40 | Outpatient (CLI) | payer MEDICARE, SELFPAY ==
[2024-08-27 11:14] LABS: Abs Immature Grans 0.07 10^3/uL (0.0-0.06); Absolute Basophil Count 0.02 10^3/uL (0.0-0.2); Absolute Eosinophil Count 0.06 10^3/uL (0.0-0.7); Absolute Lymphocyte Count 0.89 10^3/uL (1.2-3.4); Absolute Monocyte Count 0.59 10^3/uL (0.1-0.8); Absolute Neutrophil Count 6.73 10^3/uL (1.2-6.7); Basophils % 0.2 %; Eosinophils % 0.7 %; HCT 27.4 % (40.0-50.0); Immature Grans % 0.8 %; Lymphocytes % 10.6 %; MCH 26.7 pg (27.0-33.0); MCHC 32.8 % (32.0-36.0); MCV 81 fL (80-95); Monocytes % 7.1 %; Neutrophils % 80.6 %; Platelet Count 396 10^3/uL (130-400); RBC 3.37 10^6/uL (4.36-5.78); RDW-SD 47.3 fL; WBC 8.36 10^3/uL (4.4-10.8)
[2024-08-27 11:30] LABS: ALT 35 U/L (16-63); AST 20 U/L (15-37); Albumin 2.6 g/dL (3.4-5.0); Alkaline Phosphatase 107 U/L (46-116); Anion Gap 4.8 mmol/L (3-11); BUN 15 mg/dL (7-18); Bilirubin, Total 0.2 mg/dL (0.2-1.0); CO2 26.2 mmol/L (21.0-32.0); CREATININE 0.9 mg/dL (0.70-1.30); Calcium 7.8 mg/dL (8.5-10.1); Chloride 96 mmol/L (98-107); Estimated GFR 93.03 (mL/min/1.73m2); Glucose 118 mg/dL (74-106); Magnesium 1.9 mg/dL (1.8-2.4); Potassium 4.4 mmol/L (3.5-5.1); Sodium 127 mmol/L (136-145); Total Protein 6.5 g/dL (6.4-8.2)
== END 2024-08-27 04:41 | disposition home or self-care (01) ==
LOC: LBO 04:40
PROVIDERS: PCP Nurse Practitioner Adult Health; Visit Provider Internal Medicine Medical Oncology
DX: C34.11 Malignant neoplasm of upper lobe, right bronchus or lung (principal); C79.51 Secondary malignant neoplasm of bone
CPT/HCPCS: 36415; 80053; 83735; 85025

== ENCOUNTER 2024-09-03 11:46 | Outpatient (CLI) | payer MEDICARE, SELFPAY ==
[2024-09-03 11:37] LABS: Abs Immature Grans 0.05 10^3/uL (0.0-0.06); Absolute Basophil Count 0.04 10^3/uL (0.0-0.2); Absolute Eosinophil Count 0.02 10^3/uL (0.0-0.7); Absolute Lymphocyte Count 1.03 10^3/uL (1.2-3.4); Absolute Monocyte Count 0.78 10^3/uL (0.1-0.8); Absolute Neutrophil Count 4.44 10^3/uL (1.2-6.7); Basophils % 0.6 %; Eosinophils % 0.3 %; HCT 26.2 % (40.0-50.0); HGB 8.5 g/dL (13.5-17.5); Immature Grans % 0.8 %; Lymphocytes % 16.2 %; MCH 26.8 pg (27.0-33.0); MCHC 32.4 % (32.0-36.0); MCV 83 fL (80-95); MPV 7.5 fL (8.0-11.0); Monocytes % 12.3 %; Neutrophils % 69.8 %; Platelet Count 408 10^3/uL (130-400); RBC 3.17 10^6/uL (4.36-5.78); RDW 16.7 % (11.8-14.1); RDW-SD 49.2 fL; WBC 6.36 10^3/uL (4.4-10.8)
[2024-09-03 11:54] LABS: Anisocytosis 1+; Diff Comment RBC Morph Reviewed; Hypochromasia 1+; Polychromasia Present
[2024-09-03 11:59] LABS: ALT 29 U/L (16-63); AST 18 U/L (15-37); Albumin 2.6 g/dL (3.4-5.0); Alkaline Phosphatase 106 U/L (46-116); Anion Gap 7.2 mmol/L (3-11); BUN 10 mg/dL (7-18); Bilirubin, Total 0.2 mg/dL (0.2-1.0); CO2 27.8 mmol/L (21.0-32.0); CREATININE 0.8 mg/dL (0.70-1.30); Calcium 8.6 mg/dL (8.5-10.1); Chloride 97 mmol/L (98-107); FREE T4 1.14 ng/dL (0.76-1.46); Glucose 112 mg/dL (74-106); Magnesium 1.8 mg/dL (1.8-2.4); Potassium 4.1 mmol/L (3.5-5.1); Sodium 132 mmol/L (136-145); TSH 0.47 uIU/mL (0.36-3.74); Total Protein 6.4 g/dL (6.4-8.2)
== END 2024-09-03 11:47 | disposition home or self-care (01) ==
LOC: LBO 11:46
PROVIDERS: PCP Nurse Practitioner Adult Health; Visit Provider Internal Medicine Medical Oncology
DX: Z79.899 Other long term (current) drug therapy (principal); C79.51 Secondary malignant neoplasm of bone; C34.11 Malignant neoplasm of upper lobe, right bronchus or lung
CPT/HCPCS: 36415; 80053; 83735; 84439; 84443; 85025

== ENCOUNTER 2024-09-11 02:38 | Outpatient (CLI) | payer MEDICARE, SELFPAY ==
[2024-09-11 07:38] LABS: Absolute Basophil Count 0.04 10^3/uL (0.0-0.2); Absolute Eosinophil Count 0.02 10^3/uL (0.0-0.7); Absolute Lymphocyte Count 1.77 10^3/uL (1.2-3.4); Absolute Monocyte Count 1.32 10^3/uL (0.1-0.8); Absolute Neutrophil Count 6.39 10^3/uL (1.2-6.7); Basophils % 0.4 %; Eosinophils % 0.2 %; HCT 29.6 % (40.0-50.0); HGB 9.5 g/dL (13.5-17.5); Lymphocytes % 18.4 %; MCH 26.9 pg (27.0-33.0); MCHC 32.1 % (32.0-36.0); MCV 84 fL (80-95); MPV 7.6 fL (8.0-11.0); Monocytes % 13.7 %; Neutrophils % 66.3 %; Platelet Count 337 10^3/uL (130-400); RBC 3.53 10^6/uL (4.36-5.78); RDW 17.8 % (11.8-14.1); RDW-SD 53.2 fL; WBC 9.64 10^3/uL (4.4-10.8)
[2024-09-11 08:13] LABS: ALT 20 U/L (16-63); AST 16 U/L (15-37); Albumin 2.6 g/dL (3.4-5.0); Alkaline Phosphatase 100 U/L (46-116); Anion Gap 6.9 mmol/L (3-11); BUN 10 mg/dL (7-18); Bilirubin, Total 0.4 mg/dL (0.2-1.0); CO2 26.1 mmol/L (21.0-32.0); CREATININE 0.8 mg/dL (0.70-1.30); Calcium 8.7 mg/dL (8.5-10.1); Chloride 97 mmol/L (98-107); Glucose 96 mg/dL (74-106); Potassium 4.5 mmol/L (3.5-5.1); Sodium 130 mmol/L (136-145); Total Protein 6.7 g/dL (6.4-8.2)
[2024-09-11 09:31] LABS: FREE T4 0.94 ng/dL (0.76-1.46); TSH 0.48 uIU/mL (0.36-3.74)
== END 2024-09-11 02:39 | disposition home or self-care (01) ==
LOC: LBO 02:38
PROVIDERS: PCP Nurse Practitioner Adult Health; Visit Provider Internal Medicine Medical Oncology
DX: C34.11 Malignant neoplasm of upper lobe, right bronchus or lung (principal); Z79.899 Other long term (current) drug therapy; C79.51 Secondary malignant neoplasm of bone
CPT/HCPCS: 36415; 80053; 83735; 84439; 84443; 85025

== ENCOUNTER 2024-09-17 04:24 | Outpatient (CLI) | payer MEDICARE, SELFPAY ==
[2024-09-17 14:07] LABS: Absolute Basophil Count 0.04 10^3/uL (0.0-0.2); Absolute Eosinophil Count 0.01 10^3/uL (0.0-0.7); Absolute Lymphocyte Count 1.07 10^3/uL (1.2-3.4); Absolute Monocyte Count 0.49 10^3/uL (0.1-0.8); Absolute Neutrophil Count 7.05 10^3/uL (1.2-6.7); Basophils % 0.5 %; Eosinophils % 0.1 %; HCT 26.4 % (40.0-50.0); HGB 8.6 g/dL (13.5-17.5); Immature Grans % 1.1 %; Lymphocytes % 12.2 %; MCH 26.9 pg (27.0-33.0); MCHC 32.6 % (32.0-36.0); MCV 83 fL (80-95); MPV 7.8 fL (8.0-11.0); Monocytes % 5.6 %; Neutrophils % 80.5 %; Platelet Count 316 10^3/uL (130-400); RDW 17.3 % (11.8-14.1); RDW-SD 51.5 fL; WBC 8.76 10^3/uL (4.4-10.8)
[2024-09-17 14:37] LABS: ALT 24 U/L (16-63); AST 16 U/L (15-37); Albumin 2.6 g/dL (3.4-5.0); Alkaline Phosphatase 107 U/L (46-116); Anion Gap 8.5 mmol/L (3-11); BUN 14 mg/dL (7-18); Bilirubin, Total 0.2 mg/dL (0.2-1.0); CO2 26.5 mmol/L (21.0-32.0); CREATININE 0.9 mg/dL (0.70-1.30); Calcium 8.2 mg/dL (8.5-10.1); Chloride 94 mmol/L (98-107); Estimated GFR 93.03 (mL/min/1.73m2); Glucose 191 mg/dL (74-106); Magnesium 1.5 mg/dL (1.8-2.4); Potassium 4.1 mmol/L (3.5-5.1); Sodium 129 mmol/L (136-145); TSH 0.44 uIU/mL (0.36-3.74); Total Protein 6.5 g/dL (6.4-8.2)
== END 2024-09-17 04:25 | disposition home or self-care (01) ==
PROVIDERS: PCP Nurse Practitioner Adult Health; Visit Provider Internal Medicine Medical Oncology
DX: Z79.899 Other long term (current) drug therapy (principal); C79.51 Secondary malignant neoplasm of bone; C34.11 Malignant neoplasm of upper lobe, right bronchus or lung
CPT/HCPCS: 36415; 80053; 83735; 84439; 84443; 85025

== ENCOUNTER 2024-09-24 02:02 | Outpatient (CLI) | payer MEDICARE, SELFPAY ==
--- NOTE | 2024-09-24 | DI.CT_ITS ---
Exam(s) CT CHEST W EXAM: CT CHEST W CLINICAL HISTORY: Primary malignant neoplasm of RUL lung, C34.11, mets to bone, C79.51, Stage TECHNIQUE: Imaging Protocol: Axial computed tomography images with coronal and sagittal reformatted images were created and reviewed. Computer aided detection (CAD) was utilized. CONTRAST MATERIAL: Intravenous: Omnipaque 350Contrast volume:70 mL. COMPARISON: CR XR CHEST 2V PA LATERAL from 08/07/[address] CHEST PE CTA from 08/10/2024 FINDINGS: Tracheobronchial tree: There has been interval placement of a stent in the distal trachea in extendin g into the right and left mainstem bronchi. No evidence of bronchiectasis. Pulmonary parenchyma: Emphysematous changes are present in the lungs. There are new peripheral opaci ties in the left lingula. There is scarring again seen in the right upper lobe. The previously seen nodule in the right upper lobe has been replaced with the cystic lesion measuring 1.5 cm. There is again seen a perifissural nodule associated with the right middle lobe. There is scarring seen in th e inferior aspect of the right upper lobe. There is a new area of consolidation in the medial aspect of the right middle lobe. Scattered reticular nodular infiltrates are seen in the paramediastinal r egions of the lungs bilaterally. Mediastinum and Priti: The previously seen mediastinal mass has shown significant decrease in size com pared to the prior examination. Residual soft tissue in this area now measures 2.2 x 2.3 x 2.6 cm. This compares to 6.7 x 5.0 x 5.0 cm on the prior examination. No new mediastinal adenopathy is prese nt. There is mild diffuse thickening of the wall of the esophagus through its entire length. Thyroid gland: There is a tiny 4 mm hypodensity in the right lobe of the thyroid gland. No follow-up is recommended. Pleura: No effusion or pneumothorax. Heart: The heart is not dilated. Coronary artery calcifications are present. No pericardial effusion . Aorta: Thoracic aorta non-dilated. Atherosclerotic calcification is present. Pulmonary arteries: Due to the timing of the bolus, segmental and subsegmental pulmonary artery evalu ation is suboptimal. No large central pulmonary embolism is present. Upper abdomen: There are few tiny hypodensities seen in the liver. They are too small for further c haracterization but likely reflect small cysts. There is a 1.8 x 1.2 cm right hypodense adrenal nodu le. There also appears to be some nodularity of the left adrenal gland. Lymph nodes: Within normal limits. Bones: Within normal limits for the patient's age. The bones are unchanged compared to the prior exa mination no pathologic fractures are identified. Tubes, Catheters, and Lines: Soft tissues: Unremarkable. IMPRESSION: 1. Since the prior examination, there has been marked decrease in size of the mediastinal mass, the r ight upper lobe pulmonary nodule now has the appearance of a cyst or necrotic lesion and no new thora cic adenopathy is present. This likely reflects post therapy changes. 2. Small opacities seen in the medial aspect of the right middle lobe and left lingula with the mild reticular nodular infiltrate seen in the paramediastinal soft tissues. This may reflect post therapy changes. Acute infectious/inflammatory process cannot be excluded. Please correlate clinically. 3. Bilateral adrenal nodules. CT scan or MRI of the abdomen should be considered for further evaluat ion. These may represent adrenal adenomas. Metastatic disease should also be considered. 4. Interval placement of a stent in the distal trachea and extending into the right and left mainstem bronchi. RADIATION DOSE DELIVERED: 110.79mGy.cm Total DLP DATA REPOSITORY: All CT scans at this facility are submitted to the National Radiology Data Registry (NRDR) Dose Index Registry (DIR) with the [employer] (ACR). RADIATION OPTIMIZATION: All CT scans at this facility use at least one of these dose optimization te chniques: automated exposure control; mA and/or kV adjustment per patient size (includes targeted exa ms where dose is matched to clinical indication); or iterative reconstruction.
[2024-09-24] MEDS: Normal Saline - Diluent 50 ML VIAL IJ (14:13)
[2024-09-24] MEDS: Omnipaque 350 MG/ML 100 ML BTL 70 ML IJ (14:15)
== END 2024-09-24 02:22 ==
LOC: DI 02:02
PROVIDERS: PCP Nurse Practitioner Adult Health; Visit Provider Nurse Practitioner Family
DX: C34.11 Malignant neoplasm of upper lobe, right bronchus or lung (principal); C79.51 Secondary malignant neoplasm of bone
CPT/HCPCS: 71260; J3490

== ENCOUNTER 2024-10-02 03:27 | Outpatient (CLI) | payer MEDICARE, SELFPAY ==
[2024-10-02 08:02] LABS: Abs Immature Grans 0.07 10^3/uL (0.0-0.06); Absolute Basophil Count 0.03 10^3/uL (0.0-0.2); Absolute Eosinophil Count 0.01 10^3/uL (0.0-0.7); Absolute Lymphocyte Count 2.55 10^3/uL (1.2-3.4); Absolute Monocyte Count 1.27 10^3/uL (0.1-0.8); Absolute Neutrophil Count 4.59 10^3/uL (1.2-6.7); Basophils % 0.4 %; Eosinophils % 0.1 %; HCT 33.2 % (40.0-50.0); HGB 10.6 g/dL (13.5-17.5); Immature Grans % 0.8 %; Lymphocytes % 29.9 %; MCH 28.1 pg (27.0-33.0); MCHC 31.9 % (32.0-36.0); MCV 88 fL (80-95); MPV 7.2 fL (8.0-11.0); Monocytes % 14.9 %; Neutrophils % 53.9 %; Platelet Count 291 10^3/uL (130-400); RBC 3.77 10^6/uL (4.36-5.78); RDW 21.7 % (11.8-14.1); RDW-SD 68.2 fL; WBC 8.52 10^3/uL (4.4-10.8)
[2024-10-02 08:41] LABS: Anisocytosis 2+; Diff Comment RBC Morph Reviewed
[2024-10-02 08:42] LABS: ALT 31 U/L (16-63); AST 20 U/L (15-37); Albumin 3.1 g/dL (3.4-5.0); Alkaline Phosphatase 99 U/L (46-116); Anion Gap 6.8 mmol/L (3-11); BUN 11 mg/dL (7-18); Bilirubin, Total 0.4 mg/dL (0.2-1.0); CO2 28.2 mmol/L (21.0-32.0); CREATININE 0.7 mg/dL (0.70-1.30); Calcium 8.7 mg/dL (8.5-10.1); Chloride 97 mmol/L (98-107); Estimated GFR 100.37 (mL/min/1.73m2); FREE T4 0.78 ng/dL (0.76-1.46); Glucose 85 mg/dL (74-106); Magnesium 2.1 mg/dL (1.8-2.4); Potassium 4.6 mmol/L (3.5-5.1); Sodium 132 mmol/L (136-145); Total Protein 7.1 g/dL (6.4-8.2)
== END 2024-10-02 03:28 | disposition home or self-care (01) ==
LOC: LBO 03:27
PROVIDERS: PCP Nurse Practitioner Adult Health; Visit Provider Internal Medicine Medical Oncology
DX: Z79.899 Other long term (current) drug therapy (principal); C34.11 Malignant neoplasm of upper lobe, right bronchus or lung; C79.51 Secondary malignant neoplasm of bone
CPT/HCPCS: 36415; 80053; 83735; 84439; 84443; 85025

== ENCOUNTER 2024-10-09 02:56 | Outpatient (CLI) | payer MEDICARE, SELFPAY ==
[2024-10-09 11:33] LABS: Abs Immature Grans 0.05 10^3/uL (0.0-0.06); Absolute Basophil Count 0.03 10^3/uL (0.0-0.2); Absolute Eosinophil Count 0.02 10^3/uL (0.0-0.7); Absolute Monocyte Count 0.47 10^3/uL (0.1-0.8); Absolute Neutrophil Count 5.17 10^3/uL (1.2-6.7); Basophils % 0.4 %; Eosinophils % 0.3 %; HCT 30.2 % (40.0-50.0); HGB 9.8 g/dL (13.5-17.5); Immature Grans % 0.7 %; Lymphocytes % 24.9 %; MCH 28.7 pg (27.0-33.0); MCHC 32.5 % (32.0-36.0); MCV 89 fL (80-95); MPV 7.8 fL (8.0-11.0); Monocytes % 6.2 %; Neutrophils % 67.5 %; Platelet Count 315 10^3/uL (130-400); RBC 3.41 10^6/uL (4.36-5.78); RDW-SD 66.4 fL; WBC 7.64 10^3/uL (4.4-10.8)
[2024-10-09 11:41] LABS: ALT 28 U/L (16-63); AST 20 U/L (15-37); Albumin 3.2 g/dL (3.4-5.0); Alkaline Phosphatase 103 U/L (46-116); Anion Gap 8.3 mmol/L (3-11); BUN 12 mg/dL (7-18); Bilirubin, Total 0.2 mg/dL (0.2-1.0); CO2 25.7 mmol/L (21.0-32.0); CREATININE 0.8 mg/dL (0.70-1.30); Calcium 8.7 mg/dL (8.5-10.1); Chloride 97 mmol/L (98-107); Glucose 126 mg/dL (74-106); Magnesium 1.9 mg/dL (1.8-2.4); Potassium 4.2 mmol/L (3.5-5.1); Sodium 131 mmol/L (136-145); Total Protein 6.8 g/dL (6.4-8.2)
[2024-10-09 11:58] LABS: Anisocytosis 1+
== END 2024-10-09 02:57 | disposition home or self-care (01) ==
PROVIDERS: PCP Nurse Practitioner Adult Health; Visit Provider Internal Medicine Medical Oncology
DX: C34.11 Malignant neoplasm of upper lobe, right bronchus or lung (principal); C79.51 Secondary malignant neoplasm of bone
CPT/HCPCS: 36415; 80053; 83735; 85025

== ENCOUNTER 2024-10-22 03:37 | Outpatient (CLI) | payer MEDICARE, SELFPAY ==
[2024-10-22 08:37] LABS: Abs Immature Grans 0.02 10^3/uL (0.0-0.06); HCT 31.6 % (40.0-50.0); HGB 10.4 g/dL (13.5-17.5); Immature Grans % 0.3 %; MCH 30.0 pg (27.0-33.0); MCHC 32.9 % (32.0-36.0); MCV 91 fL (80-95); MPV 7.4 fL (8.0-11.0); Platelet Count 277 10^3/uL (130-400); RBC 3.47 10^6/uL (4.36-5.78); RDW 22.6 % (11.8-14.1); RDW-SD 73.1 fL; WBC 6.20 10^3/uL (4.4-10.8)
[2024-10-22 08:58] LABS: Anisocytosis 2+
[2024-10-22 09:00] LABS: ALT 27 U/L (16-63); AST 21 U/L (15-37); Albumin 3.3 g/dL (3.4-5.0); Alkaline Phosphatase 92 U/L (46-116); Anion Gap 9.2 mmol/L (3-11); BUN 14 mg/dL (7-18); Bilirubin, Total 0.5 mg/dL (0.2-1.0); CO2 25.8 mmol/L (21.0-32.0); Calcium 9.0 mg/dL (8.5-10.1); Chloride 94 mmol/L (98-107); Estimated GFR 96.40 (mL/min/1.73m2); Glucose 127 mg/dL (74-106); Magnesium 2.0 mg/dL (1.8-2.4); Potassium 4.6 mmol/L (3.5-5.1); Sodium 129 mmol/L (136-145); TSH 0.47 uIU/mL (0.36-3.74); Total Protein 7.0 g/dL (6.4-8.2)
== END 2024-10-22 03:38 | disposition home or self-care (01) ==
LOC: LBO 03:37
PROVIDERS: PCP Nurse Practitioner Adult Health; Visit Provider Internal Medicine Medical Oncology
DX: Z79.899 Other long term (current) drug therapy (principal); C34.11 Malignant neoplasm of upper lobe, right bronchus or lung; C79.51 Secondary malignant neoplasm of bone
CPT/HCPCS: 36415; 80053; 83735; 84439; 84443; 85025

== ENCOUNTER 2024-10-26 00:24 | Outpatient (CLI) | payer MEDICARE, SELFPAY ==
--- NOTE | 2024-10-26 07:15 | DI.US_ITS ---
Exam(s) US SOFT TISSUE HEAD OR NECK EXAM: US SOFT TISSUE HEAD OR NECK CLINICAL HISTORY: h/o metastatic squamous cell ca,r22.0,subcutaneous mass of head. TECHNIQUE: Ultrasound was performed using standard protocol. COMPARISON: No exams were available for comparison FINDINGS: Images from ultrasound examination of the right-side of the skull/scalp are submitted for interpretation. These images reveal adjacent/contiguous scalp masses which are hyperemic and 1 of these masses appears to invade the calvarium-skull. These masses measure approximately 2.8 x 1.1 x 3.2 cm and 1.7 x 1.1 x 2.2 cm. IMPRESSION: Right-sided scalp masses measure probably metastatic given their appearance and this patient's medical history . DATA REPOSITORY:
== END 2024-10-26 00:44 ==
LOC: DI 00:25
PROVIDERS: PCP Nurse Practitioner Adult Health; Visit Provider Nurse Practitioner Adult Health
DX: R22.0 Localized swelling, mass and lump, head (principal)
CPT/HCPCS: 76536

== ENCOUNTER 2024-10-29 03:08 | Outpatient (CLI) | payer MEDICARE, SELFPAY ==
[2024-10-29 11:50] LABS: Abs Immature Grans 0.06 10^3/uL (0.0-0.06); HCT 30.2 % (40.0-50.0); HGB 10.1 g/dL (13.5-17.5); Immature Grans % 1.0 %; MCH 31.0 pg (27.0-33.0); MCHC 33.4 % (32.0-36.0); MCV 93 fL (80-95); MPV 7.8 fL (8.0-11.0); Platelet Count 319 10^3/uL (130-400); RBC 3.26 10^6/uL (4.36-5.78); RDW 21.6 % (11.8-14.1); RDW-SD 72.4 fL; WBC 6.27 10^3/uL (4.4-10.8)
[2024-10-29 12:05] LABS: Anisocytosis 2+
[2024-10-29 12:47] LABS: ALT 28 U/L (16-63); AST 23 U/L (15-37); Albumin 3.5 g/dL (3.4-5.0); Alkaline Phosphatase 104 U/L (46-116); Anion Gap 8.8 mmol/L (3-11); BUN 10 mg/dL (7-18); Bilirubin, Total 0.2 mg/dL (0.2-1.0); CO2 25.2 mmol/L (21.0-32.0); Calcium 9.0 mg/dL (8.5-10.1); Chloride 94 mmol/L (98-107); Estimated GFR 96.40 (mL/min/1.73m2); Glucose 144 mg/dL (74-106); Magnesium 1.9 mg/dL (1.8-2.4); Potassium 4.1 mmol/L (3.5-5.1); Sodium 128 mmol/L (136-145); TSH 0.40 uIU/mL (0.36-3.74); Total Protein 7.1 g/dL (6.4-8.2)
== END 2024-10-29 03:09 | disposition home or self-care (01) ==
LOC: LBO 03:08
PROVIDERS: PCP Nurse Practitioner Adult Health; Visit Provider Internal Medicine Medical Oncology
DX: Z79.899 Other long term (current) drug therapy (principal); C79.51 Secondary malignant neoplasm of bone
CPT/HCPCS: 36415; 80053; 83735; 84439; 84443; 85025

== ENCOUNTER 2024-11-12 03:55 | Outpatient (CLI) | payer MEDICARE, SELFPAY ==
[2024-11-12 08:35] LABS: Abs Immature Grans 0.02 10^3/uL (0.0-0.06); HCT 31.8 % (40.0-50.0); HGB 10.5 g/dL (13.5-17.5); Immature Grans % 0.3 %; MCH 30.8 pg (27.0-33.0); MCHC 33.0 % (32.0-36.0); MCV 93 fL (80-95); MPV 7.7 fL (8.0-11.0); Platelet Count 229 10^3/uL (130-400); RBC 3.41 10^6/uL (4.36-5.78); RDW 21.4 % (11.8-14.1); RDW-SD 73.0 fL; WBC 6.91 10^3/uL (4.4-10.8)
[2024-11-12 08:44] LABS: Anisocytosis 2+
[2024-11-12 08:50] LABS: ALT 23 U/L (16-63); AST 19 U/L (15-37); Albumin 3.4 g/dL (3.4-5.0); Alkaline Phosphatase 85 U/L (46-116); Anion Gap 10.2 mmol/L (3-11); BUN 9 mg/dL (7-18); Bilirubin, Total 0.3 mg/dL (0.2-1.0); CO2 24.8 mmol/L (21.0-32.0); Calcium 8.8 mg/dL (8.5-10.1); Chloride 96 mmol/L (98-107); Estimated GFR 96.40 (mL/min/1.73m2); Glucose 121 mg/dL (74-106); Magnesium 1.9 mg/dL (1.8-2.4); Potassium 4.7 mmol/L (3.5-5.1); Sodium 131 mmol/L (136-145); Total Protein 7.0 g/dL (6.4-8.2)
== END 2024-11-12 03:56 | disposition home or self-care (01) ==
LOC: LBO 03:55
PROVIDERS: PCP Nurse Practitioner Adult Health; Visit Provider Internal Medicine Medical Oncology
DX: C79.51 Secondary malignant neoplasm of bone (principal); C34.11 Malignant neoplasm of upper lobe, right bronchus or lung
CPT/HCPCS: 36415; 80053; 83735; 85025

== ENCOUNTER 2024-12-03 04:09 | Outpatient (CLI) | payer MEDICARE, SELFPAY ==
[2024-12-03 12:16] LABS: Abs Immature Grans 0.03 10^3/uL (0.0-0.06); HCT 32.1 % (40.0-50.0); HGB 10.8 g/dL (13.5-17.5); Immature Grans % 0.4 %; MCH 32.2 pg (27.0-33.0); MCHC 33.6 % (32.0-36.0); MCV 96 fL (80-95); MPV 7.3 fL (8.0-11.0); Platelet Count 357 10^3/uL (130-400); RBC 3.35 10^6/uL (4.36-5.78); RDW 18.2 % (11.8-14.1); RDW-SD 64.0 fL; WBC 8.21 10^3/uL (4.4-10.8)
[2024-12-03 12:57] LABS: ALT 20 U/L (16-63); AST 18 U/L (15-37); Albumin 3.6 g/dL (3.4-5.0); Alkaline Phosphatase 82 U/L (46-116); Anion Gap 5.0 mmol/L (3-11); BUN 10 mg/dL (7-18); Bilirubin, Total 0.2 mg/dL (0.2-1.0); CO2 29.0 mmol/L (21.0-32.0); Calcium 9.1 mg/dL (8.5-10.1); Chloride 95 mmol/L (98-107); Estimated GFR 100.37 (mL/min/1.73m2); Glucose 105 mg/dL (74-106); Magnesium 2.0 mg/dL (1.8-2.4); Potassium 4.9 mmol/L (3.5-5.1); Sodium 129 mmol/L (136-145); TSH 0.47 uIU/mL (0.36-3.74); Total Protein 7.1 g/dL (6.4-8.2)
== END 2024-12-03 04:10 | disposition home or self-care (01) ==
LOC: LBO 04:09
PROVIDERS: PCP Nurse Practitioner Adult Health; Visit Provider Internal Medicine Medical Oncology
DX: Z79.899 Other long term (current) drug therapy (principal); C34.11 Malignant neoplasm of upper lobe, right bronchus or lung; C79.51 Secondary malignant neoplasm of bone
CPT/HCPCS: 36415; 80053; 83735; 84439; 84443; 85025

== ENCOUNTER 2024-12-24 08:59 | Outpatient (CLI) | payer MEDICARE, SELFPAY ==
[2024-12-24 12:38] LABS: Abs Immature Grans 0.06 10^3/uL (0.0-0.06); HCT 34.9 % (40.0-50.0); HGB 11.7 g/dL (13.5-17.5); Immature Grans % 0.5 %; MCH 31.9 pg (27.0-33.0); MCHC 33.5 % (32.0-36.0); MCV 95 fL (80-95); MPV 7.5 fL (8.0-11.0); Platelet Count 412 10^3/uL (130-400); RBC 3.67 10^6/uL (4.36-5.78); RDW 14.6 % (11.8-14.1); RDW-SD 51.1 fL; WBC 11.06 10^3/uL (4.4-10.8)
[2024-12-24 13:16] LABS: ALT 22 U/L (16-63); AST 18 U/L (15-37); Albumin 3.6 g/dL (3.4-5.0); Alkaline Phosphatase 87 U/L (46-116); Anion Gap 5.4 mmol/L (3-11); BUN 10 mg/dL (7-18); Bilirubin, Total 0.3 mg/dL (0.2-1.0); CO2 29.6 mmol/L (21.0-32.0); Calcium 9.0 mg/dL (8.5-10.1); Chloride 92 mmol/L (98-107); Estimated GFR 73.12 (mL/min/1.73m2); Glucose 195 mg/dL (74-106); Magnesium 2.0 mg/dL (1.8-2.4); Potassium 4.5 mmol/L (3.5-5.1); Sodium 127 mmol/L (136-145); TSH 0.40 uIU/mL (0.36-3.74); Total Protein 7.4 g/dL (6.4-8.2)
== END 2024-12-24 09:00 | disposition home or self-care (01) ==
LOC: LBO 09:00
PROVIDERS: PCP Nurse Practitioner Adult Health; Visit Provider Internal Medicine Medical Oncology
DX: Z79.899 Other long term (current) drug therapy (principal); C34.11 Malignant neoplasm of upper lobe, right bronchus or lung
CPT/HCPCS: 36415; 80053; 83735; 84439; 84443; 85025

== ENCOUNTER 2025-01-02 13:27 | Outpatient (CLI) | payer MEDICARE, SELFPAY ==
--- NOTE | 2025-01-02 15:30 | DI.RAD_ITS ---
Exam(s) XR CHEST 2V PA LATERAL EXAM: XR CHEST 2V PA LATERAL CLINICAL HISTORY: r/o PNA, COPD, HX OF NICOTINE USE, LUNG CANCER, J44.9 ,Z54.891, R09.89. TECHNIQUE: 2D digital imaging was performed. COMPARISON: CR XR CHEST 2V PA LATERAL from 08/07/[address] CHEST PE CTA from 08/10/[address] CHEST W from 09/24/2024 FINDINGS: 2 views: Heart size is normal. The mediastinum is not widened. Previously described density in the right upper lobe is actually less evident on the present study when compared to July 2024. there were, however, abnormal findings in the right upper lobe seen on recent chest CT scans. There are no obvious infiltrates nor pleural effusions on today's plain films. IMPRESSION: No acute pulmonary findings.However, given the findings on prior CT scans of might be prudent to repeat CT scan for more accuracy. DATA REPOSITORY: RADIATION DOSE DELIVERED:
== END 2025-01-02 13:47 ==
LOC: DI 02-15 13:27
PROVIDERS: PCP Nurse Practitioner Adult Health; Visit Provider Nurse Practitioner Adult Health
DX: J44.9 Chronic obstructive pulmonary disease, unspecified (principal); R09.89 Other specified symptoms and signs involving the circulatory and respiratory systems; C34.90 Malignant neoplasm of unspecified part of unspecified bronchus or lung; Z87.891 Personal history of nicotine dependence
CPT/HCPCS: 71046

== ENCOUNTER 2025-01-06 21:50 | Observation (INO) | payer MEDICARE, SELFPAY ==
[2025-01-06] VITALS (14 sets, daily range): BP systolic 155–166; BP diastolic 78–93; PULSE 85–99; RESP 14–23; TEMP 36.6; O2SAT 97–100
--- NOTE | 2025-01-06 21:45 | RT.EKG_ITS ---
APPROVED REPORT Exam: Resting ECG Reason for Exam: SOB Patient Location: E HR:92 bpm ECG Measurements Heart Rate 92 AXIS SC 141 P 85 QRSd 145 QRS 2 QT 382 T 17 QTc 472 Conclusion Sinus rhythm...normal P axis, V-rate 60- 99 Probable left atrial enlargement...P >50mS, <-0.10mV V1 Right bundle branch block...QRSd>120, terminal axis(90,270) There are no significant changes compared to prior EKG performed on 08/10/2024 at 11:45.
--- NOTE | 2025-01-06 22:03 | W.ED.GENAD ---
Discharge Plan Disposition Patient Disposition: Admit to [facility] Condition: Stable Discharge Details Clinical Impression: Hyponatremia Primary Care Provider: Munira Lomax ED Provider: Nikko Jean Baptiste Crozier Meds and New Rx's Prescriptions: No Action magnesium oxide 400 mg magnesium tablet 400 mg PO DAILY pyridoxine (vitamin B6) 500 mg tablet 500 mg PO DAILY cyanocobalamin (vitamin B-12) 1,000 mcg capsule 1,000 mcg PO DAILY Qty: 90 3RF Rx Instructions: For Low-normal Vit B12 acetaminophen 325 mg tablet See Rx Instructions PO Q6H PRN Rx Instructions: Take 3 tablets orally every 6 hours PRN; diazepam 5 mg tablet 5 mg PO Q6H PRN (Reason: muscle spasm) baclofen 10 mg tablet 10 mg PO TID Patient Comments: 05/02/24 from [facility] derm note jwo albuterol sulfate 90 mcg/actuation HFA aerosol inhaler 2 puff inhalation Q4H PRN (Reason: bronchospasm) Qty: 6.7 1RF Rx Instructions: 2 puffs inhalation Q4H PRN Shortness of breath or wheezing fluticasone propion-salmeterol [Advair HFA] 115-21 mcg/actuation HFA aerosol inhaler See Rx Instructions .ROUTE .COMPLEX Qty: 12 11RF Dose Instruction: INHALE TWO PUFFS BY MOUTH TWICE A DAY FOR COPD Rx Instructions: INHALE TWO PUFFS BY MOUTH TWICE A DAY FOR COPD guaifenesin 1,200 mg tablet extended release 12hr 1,200 mg PO BID sodium chloride 3 % solution for nebulization 4 ml inhalation TID PRN prochlorperazine maleate [Compazine] 10 mg tablet 10 mg PO Q6H PRN ondansetron HCl 8 mg tablet 8 mg PO Q8H calcium carbonate-vitamin D3 600 mg-10 mcg (400 unit) tablet 1 tab PO BID carboplatin/nab-pacltaxel/pembrlizumab IV Patient Comments: 10/22/24 visit Rx Instructions: as directed by HEM/ONc azithromycin 250 mg tablet See Rx Instructions PO .COMPLEX Qty: 6 0RF Rx Instructions: take 500 mg today (day 1), then 250 mg for 4 days (days 2-5) PO prednisone 20 mg tablet 40 mg PO .daily in AM Qty: 10 0RF Rx Instructions: Sinuses and COPD HPI General Mode of arrival: ambulatory. Date/Time Provider Initiated Documentation: 01/06/25 21:58. Limitations to Documentation: no limitations. Information obtained by: patient, RN notes reviewed and old records reviewed. HPI Narrative: Patient presents to ED with complaint of shortness of breath, onset this afternoon and continuing into the evening. Feels like he is unable to get big enough breath in. Denies chest pain or pressure. Denies fever or cough. Was seen by primary care midweek because of runny nose, congestion, frontal headaches. Had a chest x-ray which was negative. Currently on a Z-Thomas. Today developed shortness of breath which she had not had previously. Denies any leg pain or leg swelling. Has metastatic cancer but no history of blood clots. Is followed by heme-onc at [facility]. Does report decreased appetite and some epigastric discomfort but no vomiting or diarrhea. Related Data Home Medications ?Medication ?Instructions ?Recorded ?Confirmed cyanocobalamin (vitamin B-12) 1,000 mcg PO DAILY #90 caps 01/19/21 01/06/25 1,000 mcg capsule magnesium oxide 400 mg PO DAILY 11/17/23 01/06/25 pyridoxine (vitamin B6) 500 mg 500 mg PO DAILY 11/17/23 01/06/25 tablet acetaminophen 325 mg tablet See Rx Instructions PO Q6H PRN 01/30/24 01/06/25 diazepam 5 mg tablet 5 mg PO Q6H PRN muscle spasm 01/30/24 01/06/25 baclofen 10 mg tablet 10 mg PO TID 05/02/24 01/06/25 albuterol sulfate 90 mcg/actuation 2 puff inhalation Q4H PRN 08/07/24 01/06/25 aerosol inhaler bronchospasm #6.7 grams Advair HFA 115 mcg-21 See Rx Instructions .Route 08/08/24 01/06/25 mcg/actuation aerosol inhaler .COMPLEX #12 grams (fluticasone propion-salmeterol) guaifenesin 1,200 mg tablet, 1,200 mg PO BID 08/13/24 01/06/25 extended release 12 hr sodium chloride 3 % for 4 ml inhalation TID PRN 08/13/24 01/06/25 nebulization calcium 600 mg (as 1 tab PO BID 08/20/24 01/06/25 carbonate)-vitamin D3 10 mcg (400 unit) tablet ondansetron HCl 8 mg tablet 8 mg PO Q8H 08/20/24 01/06/25 prochlorperazine maleate 10 mg 10 mg PO Q6H PRN 08/20/24 01/06/25 tablet (Compazine) carboplatin/nab-pacltaxel/pembrlizumab IV 10/22/24 01/02/25 azithromycin 250 mg tablet See Rx Instructions PO .COMPLEX #6 01/02/25 01/06/25 tabs prednisone 20 mg tablet 40 mg (2 x 20 mg) PO .daily in AM 01/02/25 01/06/25 #10 tabs Previous Rx's ?Medication ?Instructions ?Recorded cyanocobalamin (vitamin B-12) 1,000 mcg PO DAILY #90 caps 01/19/21 1,000 mcg capsule albuterol sulfate 90 mcg/actuation 2 puff inhalation Q4H PRN 08/07/24 aerosol inhaler bronchospasm #6.7 grams Advair HFA 115 mcg-21 See Rx Instructions .Route 08/08/24 mcg/actuation aerosol inhaler .COMPLEX #12 grams (fluticasone propion-salmeterol) azithromycin 250 mg tablet See Rx Instructions PO .COMPLEX #6 01/02/25 tabs prednisone 20 mg tablet 40 mg (2 x 20 mg) PO .daily in AM 01/02/25 #10 tabs Allergies Allergy/AdvReac Type Severity Reaction Status Date / Time Penicillins AdvReac yeast Verified 01/06/25 21:59 infection in mouth & open sores Tetracyclines AdvReac yeast Verified 01/06/25 21:59 infection in mouth & open sores General Stated Complaint: RespSymp RONI: 3 Exam Narrative Exam Narrative: Const: WDWN male in NAD. VS per triage. Neck: Supple. Trachea midline. Lungs: Normal respiratory effort. Lungs are clear tonight. Cor: RRR without murmur. Good radial pulses. GI: Soft/ND/NT. Neuro: A+O x 3. Normal speech, mentation, gait. Cranial nerves II - XII grossly intact. No gross motor or sensory deficit. Ext: No C/C/E. No calf tenderness. Course Vital Signs Vital signs: Vital Signs Temperature 97.8 F 01/06/25 21:52 Pulse 99 H 01/06/25 21:52 Respiratory Rate 20 01/06/25 21:52 Blood Pressure 166/93 H 01/06/25 21:52 Pulse Oximetry 97 01/06/25 21:52 Temperature 97.8 F 01/06/25 21:58 Temperature Source Oral 01/06/25 21:58 Pulse 99 H 01/06/25 21:58 Respiratory Rate 20 01/06/25 21:58 Blood Pressure 166/93 H 01/06/25 21:58 Blood Pressure Position Sitting 01/06/25 21:58 Pulse Oximetry 97 01/06/25 21:58 Oxygen Delivery Method Room Air 01/06/25 21:52 Oxygen Flow Rate 0 01/06/25 21:52 Pain Level 0 01/06/25 21:58 Medical Decision Making Patient presenting to ED complaint of shortness of breath started this afternoon and has persisted. He is on a Z-Thomas but had a negative chest x-ray earlier this week. Has been having frontal headaches, congestion, nasal discharge. Denies fever or cough. Denies chest pain. Has metastatic cancer so must consider possibility of PE. Given negative chest x-ray earlier this week and clear lungs tonight, we will proceed with CTA of the chest. EKG shows a right bundle branch block which is old. Will obtain laboratory studies including a single troponin given symptoms for over 6 hours now. 00:30 - Patient's labs are significant for a white count of 19.2, platelets 451, sodium 120. Typical sodium for this gentleman is 129 and he fluid restricts. He was placed on prednisone in addition to the azithromycin. I suspect the elevated white count and the low sodium are related to the prednisone. His kidney function is normal. His electrolytes otherwise unremarkable. Troponin is normal at 4. CTA shows no evidence of pulmonary embolus or infiltrates. He has some scarring and cavitary lesions which are unchanged. Abdominal pelvis CT is unremarkable. Patient could otherwise be discharged except for the significant hyponatremia. Will need to discontinue the prednisone. I have started him on saline at 100 and hour. I have discussed the patient with hospitalist for observation admission till sodium is at a safer level. I have discussed with the patient and who consent to admission. Medical Records Medical records reviewed: Yes I reviewed the patient's medical records. Medical records narrative: PCP and Heme-Onc notes Lab Data Lab results reviewed: Yes I reviewed the patient's lab results. Lab results narrative: see MDM ECG Data Attestation: I personally reviewed and interpreted this ECG (s) as follows: Prior ECG tracings: available for review Interpretation: see MDM/EKG PFSH All Active Problems (Updated 01/07/25 @ 00:28 by Nikko Jean Baptiste MD) Hyponatremia (Acute) Frontal headache (Acute) History of nicotine use (Acute) Intervertebral disc disorder with radiculopathy of lumbar region (Acute) [place] [facility] [place] Subcutaneous mass of head (Acute) High risk medication use (Acute 07/17/24) [facility] [place] - Raoul Phelan MD Secondary malignant neoplasm of bone (Acute) 07/11/24 [facility] [place] 08/20/24 f/u [facility] Hem/Onc Metastatic non-small cell lung cancer (Acute ~07/10/24) [facility] [place] Surg 08/20/24 F/U [facility] Hem/Onc Hoarseness, chronic (Acute) Cervical myelopathy (Acute) [facility] [place] 05/11/24 Axonal neuropathy (Acute) [facility] [place] 07/21/23 IFG (impaired fasting glucose) (Acute) [facility] [place] 07/21/23 Spinal stenosis, lumbar region with neurogenic claudication (Acute) [facility] [place] 06/20/23 Carpal tunnel syndrome on left (Acute) [facility] [place] 06/10/23 Other spondylosis with radiculopathy, lumbar region (Acute) 05/19/23 Neurology, Dr Dewey. Pt had abnormal MRI lumbar spine Chronic bilateral low back pain with right-sided sciatica (Acute) [facility] [place]05[place]23 Cervical disc disorder with radiculopathy, cervicothoracic region (Acute) [facility] [place]/05/23 S/P Laminoplasty 01/25/2024 [place] [facility] [place].Ji-Suk Harsh Evans 03/09/24 F/U Neurosurgery Bilateral leg pain (Chronic) Peripheral neuropathy; ?PAD, ABIs-->normal 02/2021 (see scanned) Actinic keratosis due to exposure to sunlight (Acute) Derm manages; L helix, L nose Peripheral neuropathy (Chronic) RX Gabapentin Tendon xanthoma (Acute) Right Middle Finger Elevated BP without diagnosis of hypertension (Acute) Basal cell carcinoma (BCC) of left ear (Chronic) Derm manages--L helix (path 08/28/2018); Dr. Cartagena; Dr. Wyatt magaña; wears hat Alcohol abuse (Chronic) Beer; 2-4 servings per day COPD (chronic obstructive pulmonary disease) (Chronic) Long-term hx of nicotine Medical History Snoring No apnea. Tobacco use disorder 2 PPD started in adolescense; quit 07/2024 Tracheal compression [place] [facility] [place] Chronic head pain Pressure in head Chronic myofascial pain Head, neck & shoulders Neck and shoulder pain Subcutaneous nodule of head Frontal sinus pain Hyponatremia suspect chronic? 131 x3 in 2019 History of basal cell carcinoma (BCC) Dr. Schneider Spasticity [facility] [place] Epidermal inclusion cyst Elevated CPK History of sciatica Intermittent since ~1980s; no recent flares History of broken nose Sinusitis ? related to Sinusitis Surgical History S/P bronchoscopy (~09/2024) 09/28/24 Bronchoscopy negative History of bronchoscopy 08/11/2024 by Interventional Pul[place] [facility] [place] debulking and placement of a Tracheal Y-stent. 09/25/24 [place] [facility] Therapeutic suctioning, tissue/tumor debulking and stent removal. H/O cervical spine surgery (~01/2024) C3-6 Laminoplasty [facility] [place] S/P Mohs surgery for basal cell carcinoma (~04/21/23) L upper helical rim (ear) History of removal of cyst R middle finger; Ramirez History of surgical removal of skin lesion Basal cell L ear Family History Mother Breast cancer Dx'ed late 70s and survived Dementia From dementia Depression Maternal Grandfather Diabetes Grandson No problems noted. Father Unknown family medical history Social History Smoking/Tobacco Use Status: Current every day Tobacco: How many years used: 40 Quit status: not considering quitting Smoking risk assessment performed?: Yes Alcohol Intake: current Alcohol Intake frequency: 0-2 drinks per day Alcohol type: beer Drug use: Never Substance use type: does not use Adopted: No Caregiver/Support person: No Foster care: No Household members: spouse, children and other Details: Lives with (Nelly) and has 3 sons, youngest lives with him Housing: house Number of Children: 3 number of grandchildren: 2 Communication Needs: None and Corrective Lenses Education Level: high school Do you need help understanding health information?: Rarely current occupation: [employer], Self-Employed; [employer] license Pets and animals: Yes (2) Pets and animals: dog(s) Sexually active: Yes Do you think of yourself as: straight/heterosexual Current gender identity: male What is your relationship status?: How often do you talk on the phone with friends or family?: three or more times per week How often do you get together with friends or relatives?: three or more times per week Do you belong to any clubs or organized social groups?: no Panel score (0-1 are the most socially isolated patients): 2 What type of physical activity do you participate in: walking Duration: > 90 minutes/day Frequency: 5-6 times per week Special jonn needs: No Seatbelt use: sometimes Helmet use: No Drive intox or ride w/intox local company refrigerated truck driver: No Do you feel safe at home: Yes Do you feel safe in your relationship?: Yes PAWSS Have you Been Recently Intoxicated or Drunk Within the Last 30 days?: No Have you Ever Experienced Previous Episodes of Alcohol Withdrawal?: No Have you ever Experienced Withdrawal Seizures?: No Have you ever Experienced Delirium Tremens(DT)s?: No Have you ever undergone Alcohol Rehabilitation Treatment (i.e, inpt ot outpatient treatment programs)?: No Have you ever Experienced Blackouts?: No Have you ever Combined Alcohol with other Downers within the last 90 days?: No Have you ever Combined Alcohol with any other Substance of Abuse during the last 90 days?: No Positive Blood Alcohol level on Presentation? [PCS.BAL]: No Evidence of Increased Autonomic Activity (i.e. HR>120, tremor, sweating, agitation, nausea)?: No Result: 0
--- NOTE | 2025-01-06 22:15 | DI.CT_ITS ---
Exam(s) CT CHEST PE ABD PELVIS W EXAM: CT CHEST PE ABD PELVIS W CLINICAL HISTORY: SOB onset this afternoon; metastatic CA. TECHNIQUE: Imaging Protocol: Axial computed tomography images with coronal and sagittal reformatted images were created and reviewed. Computer aided detection (CAD) was utilized. CONTRAST MATERIAL: Intravenous: Omnipaque 350 Contrast volume:75 ml Oral: / no COMPARISON: CT CT CHEST W from 09/24/2024 FINDINGS: CHEST: Pulmonary parenchyma: No consolidation. Right upper lobe scarring and small cavitary lesion are unchanged. There are mild emphysematous changes. Tracheobronchial tree: The previously noted tracheal and bronchial stents have been removed. Bronchial wall thickening in the right lower lobe.. Pleura: No effusion or pneumothorax. Mediastinum: Esophageal wall thickening again noted. Decreased size of previously noted mediastinal mass and adenopathy. Pulmonary arteries: No visible emboli. Cardiovascular: Coronary artery calcifications. No pericardial effusion. Thoracic aorta non-dilated. Bones: Unremarkable for age. No lytic or blastic lesions. No compression fractures. Soft tissues: Unremarkable. ABDOMEN and PELVIS: Liver: Normal density. No suspicious mass. Gallbladder and biliary tract: No evidence of stones or wall thickening. No biliary dilatation. Pancreas: Normal density, no abnormal calcifications or inflammatory process. Spleen: Normal. Kidneys: Normal size, contour and axis. No radiodense stones. No obstructive uropathy. No suspicious masses seen. Adrenal glands: No masses seen. Previously noted right adrenal nodule is not visible on today's exam. Aorta: Abdominal portion non-dilated. Atherosclerotic calcification. Lymph nodes: Within normal limits. Soft tissues: Small fat containing right inguinal hernia. Bladder: Overdistended but unremarkable. Bowel: No obstruction or bowel wall thickening. Appendix is normal. Increased stool in right side of colon. Peritoneal cavity: No ascites. No focal collection. No mesenteric inflammatory response. No free air. Bones: There are severe degenerative changes of both hips. There are severe degenerative changes of the lower lumbar spine. Reproductive organs: Unremarkable for age. IMPRESSION: No evidence of pulmonary emboli. Right upper lobe cystic area appears unchanged. Decreased size of previously noted mediastinal mass and adenopathy. Esophageal wall thickening again noted. No acute abnormality in the abdomen or pelvis. RADIATION DOSE DELIVERED: 329.09mGy.cm Total DLP DATA REPOSITORY: All CT scans at this facility are submitted to the National Radiology Data Registry (NRDR) Dose Index Registry (DIR) with the [employer] (ACR). RADIATION OPTIMIZATION: All CT scans at this facility use at least one of these dose optimization techniques: automated exposure control; mA and/or kV adjustment per patient size (includes targeted exams where dose is matched to clinical indication); or iterative reconstruction.
[2025-01-06] MEDS: Normal Saline 500 ML IV (22:30)
[2025-01-06 22:38] LABS: BE (Venous) 3 mmol/L (-2-3); HCO3 (Venous) 27 mmol/L (23-28); O2 Sat (Venous) 50 %; TCO2 (Venous) 25 mmol/L (24-29); pCO2 (Venous) 41 mmHg (41-51); pO2 (Venous) 27 mmHg
[2025-01-06 22:39] LABS: Abs Immature Grans 0.15 10^3/uL (0.0-0.06); HCT 32.1 % (40.0-50.0); HGB 11.3 g/dL (13.5-17.5); Immature Grans % 0.8 %; MCH 31.9 pg (27.0-33.0); MCHC 35.2 % (32.0-36.0); MCV 91 fL (80-95); MPV 7.4 fL (8.0-11.0); Platelet Count 451 10^3/uL (130-400); RBC 3.54 10^6/uL (4.36-5.78); RDW 13.2 % (11.8-14.1); RDW-SD 43.8 fL; WBC 19.16 10^3/uL (4.4-10.8)
--- NOTE | 2025-01-06 22:40 | NUR.NOTE ---
Nursing Note: Pt stated that since seeing provider he has developed a frontal lobe headache as well left ear pain, as well as wanting to let the provider know that his lymph nodes have been swollen for 1 month. Provider aware
[2025-01-06 22:59] LABS: ALT 94 U/L (16-63); AST 38 U/L (15-37); Albumin 3.1 g/dL (3.4-5.0); Alkaline Phosphatase 167 U/L (46-116); Anion Gap 6.3 mmol/L (3-11); BUN 13 mg/dL (7-18); Bilirubin, Total 0.4 mg/dL (0.2-1.0); CO2 27.7 mmol/L (21.0-32.0); Calcium 8.9 mg/dL (8.5-10.1); Chloride 86 mmol/L (98-107); Estimated GFR 100.37 (mL/min/1.73m2); Glucose 111 mg/dL (74-106); Magnesium 1.9 mg/dL (1.8-2.4); Potassium 4.5 mmol/L (3.5-5.1); Total Protein 7.1 g/dL (6.4-8.2); Troponin I 4 ng/L (<or=76)
[2025-01-06 23:03] LABS: Sodium 120 mmol/L (136-145)
[2025-01-06 23:06] LABS: RBC Morphology Normal
[2025-01-06] MEDS: Normal Saline Flush 10 ML SYR IVP (23:12)
[2025-01-06] MEDS: Normal Saline - Diluent 50 ML VIAL IJ (23:12)
[2025-01-06] MEDS: Omnipaque 350 MG/ML 100 ML BTL IJ (23:12)
[2025-01-07] VITALS (18 sets, daily range): BP systolic 139–169; BP diastolic 76–88; PULSE 89–98; RESP 14–22; TEMP 36.4–36.8; O2SAT 97–99
--- NOTE | 2025-01-07 00:07 | DI.VRAD_ITS ---
PROCEDURE INFORMATION: Exam: CTA Chest With Contrast Exam date and time: 01/06/2025 11:08 PM Age: 69 years old Clinical indication: Abdominal pain; Generalized; SOB onset this afternoon; Metastatic CA TECHNIQUE: Imaging protocol: Computed tomographic angiography of the chest with contrast. Exam focused on the arteries. Radiation optimization: All CT scans at this facility use at least one of these dose optimization techniques: automated exposure control; mA and/or kV adjustment per patient size (includes targeted exams where dose is matched to clinical indication); or iterative reconstruction. Contrast material: OMNIPAQUE 350; Contrast volume: 75 ml; Contrast route: INTRAVENOUS (IV); COMPARISON: CT CHEST PE CTA 08/10/2024 1:27 PM FINDINGS: Pulmonary arteries: No acute pulmonary embolus. Aorta: Atheromatous calcifications are present within the visualized thoracic aorta. Lungs: Subsegmental bronchial wall thickening is present within a branch of the right lower lobe airway, unchanged from the CT dated 09/24/2024. Focal bronchial wall thickening and mild bronchiectasis is present within a subsegmental airway within the anteromedial right lower lobe. No new pulmonary consolidation. Probable pulmonary scarring and cicatricial emphysema is present at the right apex. There is a cavitary lesion in the region of a previous pulmonary nodule on the comparison CT dated 08/10/2024. Findings have a similar appearance to the comparison CT dated 09/24/2024. Pleural spaces: No pleural effusion or pneumothorax. Heart: Heart is normal size. No pericardial effusion. Coronary arteries: There are scattered atheromatous coronary artery calcifications. Esophagus: There is moderate circumferential wall thickening of the esophagus. Lymph nodes: No enlarged lymph nodes. Bones/joints: Unremarkable. No acute fracture. Soft tissues: Unremarkable. IMPRESSION: 1. No pulmonary embolus. 2. Wall thickening of the esophagus. This is a nonspecific finding but can be associated with esophagitis. Neoplasm could also be considered in the differential. 3. Small multifocal regions of scarring or cavitary lesions within the lungs similar to the prior CT dated 09/24/2024. No new pulmonary consolidation or pulmonary metastasis. PROCEDURE INFORMATION: Exam: CT Abdomen And Pelvis With Contrast Exam date and time: 01/06/2025 11:08 PM Age: 69 years old Clinical indication: Abdominal pain; Generalized; SOB onset this afternoon; Metastatic CA TECHNIQUE: Imaging protocol: Computed tomography of the abdomen and pelvis with contrast. 3D rendering (Not supervised by radiologist): MIP and/or 3D reconstructed images were created by the technologist. Radiation optimization: All CT scans at this facility use at least one of these dose optimization techniques: automated exposure control; mA and/or kV adjustment per patient size (includes targeted exams where dose is matched to clinical indication); or iterative reconstruction. Contrast material: OMNIPAQUE 350; Contrast volume: 75 ml; Contrast route: INTRAVENOUS (IV); COMPARISON: CT CHEST W 09/24/2024 2:10 PM FINDINGS: Liver: The liver has a normal appearance. Gallbladder and biliary ducts: The gallbladder is unremarkable. No biliary ductal dilatation. Pancreas: The pancreas demonstrates normal size. No pancreatic ductal dilatation. Spleen: The spleen demonstrates normal size. Adrenal glands: The adrenal glands have a normal appearance. Kidneys and ureters: The kidneys are normal in size. No hydronephrosis. No hydroureter or ureterolithiasis. Stomach and bowel: The bowel demonstrates overall normal caliber and wall thickness. Appendix: The appendix is thin walled. Intraperitoneal space: Unremarkable. No free air. No significant fluid collection. Vasculature: There are scattered atheromatous calcifications throughout the aorta and iliac arteries. Lymph nodes: No enlarged lymph nodes. Urinary bladder: The bladder is thin walled and fluid filled. Reproductive: Unremarkable as visualized. Bones/joints: Severe degenerative changes are present at the hip joints, more severe on the right than on the left. No suspicious bony lesions. No acute fracture. Soft tissues: There is a small fat containing right inguinal hernia. IMPRESSION: No acute intra-abdominal findings. Dictated and Authenticated by: Mala Jones MD. Orderin Markel El MD
[2025-01-07] MEDS: Normal Saline 1,000 ML 100 ML IV (00:22)
--- NOTE | 2025-01-07 00:23 | W.PM.HP.N ---
Date of service: 01/07/25 Time of Service: 00:24 Assessment and Plan Assessment and plan (1) Hyponatremia: Start date: 01/06/25 Status: Acute Assessment and plan: This is a 69-year-old gentleman who has a history of recent respiratory symptoms finished his Zithromax with prednisone pulse at home. His increased shortness of breath is unclear with no acute findings on imaging have any history of metastatic non-small cell lung cancer on treatment. His recent labs do show mild hyponatremia chronically but this was worse sodium down to 120 in the ED. The patient is not confused. He will be admitted for gentle IV hydration and observation of his electrolytes hopefully normalized to his baseline. His shortness of breath is unclear with no acute infectious process evident. Prednisone might have worsened his hyponatremia but this also may be chronic with his lung cancer. If patient remains stable he could be discharged on his usual outpatient medical therapy and follow-up with [facility] heme-onc. He is a full code. (2) Metastatic non-small cell lung cancer: Status: Chronic Assessment and plan: Patient actively being treated and followed by [facility] heme-onc. (3) COPD (chronic obstructive pulmonary disease): Status: Chronic Assessment and plan: No apparent exacerbation presently in no acute pneumonia. Steroids and antibiotics will be held for now. Patient just finished a 5-day course of Zithromax/prednisone. History of Present Illness History of Present Illness Chief Complaint: Shortness of breath. Narrative: This is a 69-year-old male patient recently treated for COPD exacerbation with Zithromax and prednisone presented to the ED with increased shortness of breath not being able to take a deep breath. He has a history of metastatic non-small cell lung cancer stable on treatment with no history of thromboembolic events and a negative CT for PE upon this admission. He has had no fever. He has no white count and had a negative workup for PE in the ED with no evidence of infiltrate on imaging. He is not oxygen dependent. Patient denies any confusion or change in mentation but was found to have hyponatremia in the ED. He was initiated on normal saline infusion and this was thought to be secondary to prednisone treatment recently precipitated exacerbation. He also had an elevated WBC but no fever and no infiltrate on imaging as mentioned. He was not tachypneic. He had no respiratory symptoms other than feeling shortness of breath. Patient has finished his course of Zithromax and prednisone pulse these were not continued with patient being admitted for observation while trending his exacerbated hyponatremia which may be secondary to recent prednisone course. Patient is a full code. Review of Systems Narrative: 13 point review of systems otherwise unrevealing or stable. PFSH All Active Problems (Updated 01/07/25 @ 06:53 by Bashir Forte) Hyponatremia (Acute) Frontal headache (Acute) History of nicotine use (Acute) Intervertebral disc disorder with radiculopathy of lumbar region (Acute) 11/09/24 [facility] Neurosurgery note Subcutaneous mass of head (Acute) High risk medication use (Acute 07/17/24) [facility] Hem Onc - Raoul Phelan MD Secondary malignant neoplasm of bone (Acute) 07/11/24 [facility] Rad Onc note 08/20/24 f/u [facility] Hem/Onc Metastatic non-small cell lung cancer (Chronic ~07/10/24) [facility] Thoracic Surg 08/20/24 F/U [facility] Hem/Onc Hoarseness, chronic (Acute) Cervical myelopathy (Acute) [facility] Neurosurgery 05/11/24 Axonal neuropathy (Acute) [facility] Neuro 07/21/23 IFG (impaired fasting glucose) (Acute) [facility] Neuro 07/21/23 Spinal stenosis, lumbar region with neurogenic claudication (Acute) [facility] Neurosurgery 06/20/23 Carpal tunnel syndrome on left (Acute) [facility] Neuro 06/10/23 Other spondylosis with radiculopathy, lumbar region (Acute) 05/19/23 Neurology, Dr Dewey. Pt had abnormal MRI lumbar spine Chronic bilateral low back pain with right-sided sciatica (Acute) [facility] Neuro-04/05/23 Cervical disc disorder with radiculopathy, cervicothoracic region (Acute) [facility] Neuro-04/05/23 S/P Laminoplasty 01/25/2024 at [facility] done by Dr.Ji-Suk Hrash Evans 03/09/24 F/U Neurosurgery Bilateral leg pain (Chronic) Peripheral neuropathy; ?PAD, ABIs-->normal 02/2021 (see scanned) Actinic keratosis due to exposure to sunlight (Acute) Derm manages; L helix, L nose Peripheral neuropathy (Chronic) RX Gabapentin Tendon xanthoma (Acute) Right Middle Finger Elevated BP without diagnosis of hypertension (Acute) Basal cell carcinoma (BCC) of left ear (Chronic) Derm manages--L helix (path 08/28/2018); Dr. Cartagena; Dr. Wyatt magaña; wears hat Alcohol abuse (Chronic) Beer; 2-4 servings per day COPD (chronic obstructive pulmonary disease) (Chronic) Long-term hx of nicotine Medical History Snoring No apnea. Tobacco use disorder 2 PPD started in adolescense; quit 07/2024 Tracheal compression DX at [facility] 08/10/2024 Chronic head pain Pressure in head Chronic myofascial pain Head, neck & shoulders Neck and shoulder pain Subcutaneous nodule of head Frontal sinus pain Hyponatremia suspect chronic? 131 x3 in 2019 History of basal cell carcinoma (BCC) Dr. Schneider Spasticity [facility] Neuro Epidermal inclusion cyst Elevated CPK History of sciatica Intermittent since ~; no recent flares History of broken nose Sinusitis ? related to Sinusitis Surgical History S/P bronchoscopy (~09/2024) 09/28/24 Bronchoscopy negative History of bronchoscopy 08/11/2024 by Interventional Pulmonology at [facility] with tumor debulking and placement of a Tracheal Y-stent. 09/25/24 - [facility] Therapeutic suctioning, tissue/tumor debulking and stent removal. H/O cervical spine surgery (~01/2024) C3-6 Laminoplasty [facility] Neurosurgery S/P Mohs surgery for basal cell carcinoma (~04/21/23) L upper helical rim (ear) History of removal of cyst R middle finger; Ramirez History of surgical removal of skin lesion Basal cell L ear Family History Mother Breast cancer Dx'ed late 70s and survived Dementia From dementia Depression Maternal Grandfather Diabetes Grandson No problems noted. Father Unknown family medical history Social History Smoking/Tobacco Use Status: Current every day Tobacco: How many years used: 40 Quit status: not considering quitting Smoking risk assessment performed?: Yes Alcohol Intake: current Alcohol Intake frequency: 0-2 drinks per day Alcohol type: beer Drug use: Never Substance use type: does not use Adopted: No Caregiver/Support person: No Foster care: No Household members: spouse, children and other Details: Lives with (Nelly) and has 3 sons, youngest lives with him Housing: house Number of Children: 3 number of grandchildren: 2 Communication Needs: None and Corrective Lenses Education Level: high school Do you need help understanding health information?: Rarely current occupation: [employer], Self-Employed; [employer] license Pets and animals: Yes (2) Pets and animals: dog(s) Sexually active: Yes Do you think of yourself as: straight/heterosexual Current gender identity: male What is your relationship status?: How often do you talk on the phone with friends or family?: three or more times per week How often do you get together with friends or relatives?: three or more times per week Do you belong to any clubs or organized social groups?: no Panel score (0-1 are the most socially isolated patients): 2 What type of physical activity do you participate in: walking Duration: > 90 minutes/day Frequency: 5-6 times per week Special jonn needs: No Seatbelt use: sometimes Helmet use: No Drive intox or ride w/intox semi driver: No Do you feel safe at home: Yes Do you feel safe in your relationship?: Yes Meds Allergies and Home Medications Allergies Allergy/AdvReac Type Severity Reaction Status Date / Time Penicillins AdvReac yeast Verified 01/06/25 21:59 infection in mouth & open sores Tetracyclines AdvReac yeast Verified 01/06/25 21:59 infection in mouth & open sores Home Medications ?Medication ?Instructions ?Recorded ?Confirmed ?Type cyanocobalamin (vitamin B-12) 1,000 mcg PO DAILY #90 caps 01/19/21 01/06/25 Rx 1,000 mcg capsule magnesium oxide 400 mg PO DAILY 11/17/23 01/06/25 History pyridoxine (vitamin B6) 500 mg 500 mg PO DAILY 11/17/23 01/06/25 History tablet acetaminophen 325 mg tablet See Rx Instructions PO Q6H PRN 01/30/24 01/06/25 History diazepam 5 mg tablet 5 mg PO Q6H PRN muscle spasm 01/30/24 01/06/25 History baclofen 10 mg tablet 10 mg PO TID 05/02/24 01/06/25 History albuterol sulfate 90 mcg/actuation 2 puff inhalation Q4H PRN 08/07/24 01/06/25 Rx aerosol inhaler bronchospasm #6.7 grams Advair HFA 115 mcg-21 See Rx Instructions .Route 08/08/24 01/06/25 Rx mcg/actuation aerosol inhaler .COMPLEX #12 grams (fluticasone propion-salmeterol) guaifenesin 1,200 mg tablet, 1,200 mg PO BID 08/13/24 01/06/25 History extended release 12 hr sodium chloride 3 % for 4 ml inhalation TID PRN 08/13/24 01/06/25 History nebulization calcium 600 mg (as 1 tab PO BID 08/20/24 01/06/25 History carbonate)-vitamin D3 10 mcg (400 unit) tablet ondansetron HCl 8 mg tablet 8 mg PO Q8H 08/20/24 01/06/25 History prochlorperazine maleate 10 mg 10 mg PO Q6H PRN 08/20/24 01/06/25 History tablet (Compazine) carboplatin/nab-pacltaxel/pembrlizumab IV 10/22/24 01/02/25 History azithromycin 250 mg tablet See Rx Instructions PO .COMPLEX #6 01/02/25 01/06/25 Rx tabs prednisone 20 mg tablet 40 mg (2 x 20 mg) PO .daily in AM 01/02/25 01/06/25 Rx #10 tabs Exam Narrative Exam Narrative: General: Patient appears appropriate for age, in no acute distress and alert and oriented x 3. HEENT: Normocephalic with large soft round tumor over his right parietal scalp which he states is chronic. Eyes with pupils equal and reactive light specially, extraocular movement intact and sclera anicteric. Oropharynx with moist mucosa and fair dentition. Neck: Supple without JVD. Back: Normal posture, no CVA tenderness. Lungs: Fair aeration and clear to auscultation percussion with no focalizing rales or rhonchi. No expiratory wheeze. Heart: Regular rate and rhythm with no murmur or gallop appreciated. Abdomen: Normal contour, soft and nontender to palpation with no palpable hepatosplenomegaly. No guarding or rebound. Positive quadrants. Genitalia/rectal: Exam deferred. Skin: Normal color, warm and dry. Extremities: Without clubbing, cyanosis or pitting edema. Peripheral pulses intact. Neuro: Cranial nerves II through XII gross intact, no focalized motor deficits and no tremor. Psych: Normal affect and mood. No abnormal thought processes. Remote and recent memory intact. Results Imaging Imaging Studies: Exam: CTA Chest With Contrast Exam date and time: 01/06/2025 11:08 PM Age: 69 years old Clinical indication: Abdominal pain; Generalized; SOB onset this afternoon; Metastatic CA COMPARISON: CT CHEST PE CTA 08/10/2024 1:27 PM FINDINGS: Pulmonary arteries: No acute pulmonary embolus. Aorta: Atheromatous calcifications are present within the visualized thoracic aorta. Lungs: Subsegmental bronchial wall thickening is present within a branch of the right lower lobe airway, unchanged from the CT dated 09/24/2024. Focal bronchial wall thickening and mild bronchiectasis is present within a subsegmental airway within the anteromedial right lower lobe. No new pulmonary consolidation. Probable pulmonary scarring and cicatricial emphysema is present at the right apex. There is a cavitary lesion in the region of a previous pulmonary nodule on the comparison CT dated 08/10/2024. Findings have a similar appearance to the comparison CT dated 09/24/2024. Pleural spaces: No pleural effusion or pneumothorax. Heart: Heart is normal size. No pericardial effusion. Coronary arteries: There are scattered atheromatous coronary artery calcifications. Esophagus: There is moderate circumferential wall thickening of the esophagus. Lymph nodes: No enlarged lymph nodes. Bones/joints: Unremarkable. No acute fracture. Soft tissues: Unremarkable. IMPRESSION: 1. No pulmonary embolus. 2. Wall thickening of the esophagus. This is a nonspecific finding but can be associated with esophagitis. Neoplasm could also be considered in the differential. 3. Small multifocal regions of scarring or cavitary lesions within the lungs similar to the prior CT dated 09/24/2024. No new pulmonary consolidation or pulmonary metastasis. PROCEDURE INFORMATION: Exam: CT Abdomen And Pelvis With Contrast Exam date and time: 01/06/2025 11:08 PM Age: 69 years old Clinical indication: Abdominal pain; Generalized; SOB onset this afternoon; Metastatic CA COMPARISON: CT CHEST W 09/24/2024 2:10 PM FINDINGS: Liver: The liver has a normal appearance. Gallbladder and biliary ducts: The gallbladder is unremarkable. No biliary ductal dilatation. Pancreas: The pancreas demonstrates normal size. No pancreatic ductal dilatation. Spleen: The spleen demonstrates normal size. Adrenal glands: The adrenal glands have a normal appearance. Kidneys and ureters: The kidneys are normal in size. No hydronephrosis. No hydroureter or ureterolithiasis. Stomach and bowel: The bowel demonstrates overall normal caliber and wall thickness. Appendix: The appendix is thin walled. Intraperitoneal space: Unremarkable. No free air. No significant fluid collection. Vasculature: There are scattered atheromatous calcifications throughout the aorta and iliac arteries. Lymph nodes: No enlarged lymph nodes. Urinary bladder: The bladder is thin walled and fluid filled. Reproductive: Unremarkable as visualized. Bones/joints: Severe degenerative changes are present at the hip joints, more severe on the right than on the left. No suspicious bony lesions. No acute fracture. Soft tissues: There is a small fat containing right inguinal hernia. IMPRESSION: No acute intra-abdominal findings. Labs 01/07/25 06:02 01/07/25 06:02 Labs: Laboratory Results - last 24 hr 01/06/25 22:30 WBC 19.16 H RBC 3.54 L Hgb 11.3 L Hct 32.1 L MCV 91 MCH 31.9 MCHC 35.2 RDW 13.2 Plt Count 451 H MPV 7.4 L Immature Gran % 0.8 Neutrophils % 80.1 Lymphocytes % 9.6 Monocytes % 9.2 Eosinophils % 0.2 Basophils % 0.1 Nucleated RBC % 0.0 Absolute Neutrophils 15.35 H Absolute Lymphocytes 1.84 Absolute Monocytes 1.76 H Absolute Eosinophils 0.04 Absolute Basophils 0.02 RBC Morphology Normal VBG pH 7.42 H VBG pCO2 41 VBG pO2 27 VBG HCO3 27 VBG Total CO2 25 VBG O2 Saturation 50 VBG Base Excess 3 Sodium 120 L* Potassium 4.5 Chloride 86 L Carbon Dioxide 27.7 Anion Gap 6.3 BUN 13 Creatinine 0.7 Est GFR (CKD-EPI 2020) 100.37 Glucose 111 H Calcium 8.9 Magnesium 1.9 Total Bilirubin 0.4 AST 38 H ALT 94 H Alkaline Phosphatase 167 H Troponin I 4 Total Protein 7.1 Albumin 3.1 L Last Vital Signs Temp 36.6 C 01/06/25 21:58 Pulse 91 H 01/06/25 23:41 Resp 15 01/06/25 23:41 BP 157/78 H 01/06/25 23:41 Pulse Ox 99 01/06/25 23:41 PAWSS Have you Been Recently Intoxicated or Drunk Within the Last 30 days?: No Have you Ever Experienced Previous Episodes of Alcohol Withdrawal?: No Have you ever Experienced Withdrawal Seizures?: No Have you ever Experienced Delirium Tremens(DT)s?: No Have you ever undergone Alcohol Rehabilitation Treatment (i.e, inpt ot outpatient treatment programs)?: No Have you ever Experienced Blackouts?: No Have you ever Combined Alcohol with other Downers within the last 90 days?: No Have you ever Combined Alcohol with any other Substance of Abuse during the last 90 days?: No Positive Blood Alcohol level on Presentation? [PCS.BAL]: No Evidence of Increased Autonomic Activity (i.e. HR>120, tremor, sweating, agitation, nausea)?: No Result: 0 Time Spent Time spent with Patient: 55-74 minutes Time was spent: preparing to see the patient(eg.review tests), obtaining and/or reviewing separately otained hiistory, ordering medications,tests, procedures, indepentently interpreting results and care coordination
[2025-01-07 01:36] LABS: COVID-19 PCR Negative (Negative); RSV PCR Negative (Negative)
[2025-01-07] MEDS: Acetaminophen 325 MG TAB 650 MG PO (02:41)
--- NOTE | 2025-01-07 02:53 | W.PC.ACHO ---
Registration Status: ADM AGNES Primary Language: Preferred Language: Tunisian ED Information & Data Chief Complaint RespSymp 01/06/25 22:20 Triage Note Running nose for 3 weeks 01/06/25 21:52 went to pcp on Tuesday got antibiotics but since tonight noticed that his breathing has gotten worst. Patient has a history of metastatic cancer. Decreased appetite and soreness in the stomach Medical / Surgical History (Last Reviewed 01/07/25 @ 00:28 by Bashir Forte) Chronic head pain Chronic myofascial pain Elevated CPK Epidermal inclusion cyst Frontal sinus pain History of basal cell carcinoma (BCC) History of broken nose History of sciatica Hyponatremia Neck and shoulder pain Pressure in head Sinusitis Snoring Spasticity Subcutaneous nodule of head Tobacco use disorder Tracheal compression (Last Reviewed 01/07/25 @ 00:28 by Bashir Forte) H/O cervical spine surgery (~01/2024) History of bronchoscopy History of removal of cyst History of surgical removal of skin lesion S/P bronchoscopy (~09/2024) S/P Mohs surgery for basal cell carcinoma (~04/21/23) Most Recent Vital Signs Temperature 36.8 C 01/07/25 01:53 Temperature Source Oral 01/06/25 21:58 Pulse 98 H 01/07/25 01:53 Pulse Rhythm Regular 01/07/25 01:53 Pulse 91 H 01/07/25 01:15 Respiratory Rate 18 01/07/25 01:53 Respiratory Effort Short of Breath 01/07/25 01:53 Respiratory Depth Normal 01/07/25 01:53 Respiratory Pattern Normal 01/07/25 01:53 Blood Pressure 149/83 H 01/07/25 01:53 Blood Pressure Mean 110 01/07/25 01:15 Blood Pressure Position Sitting 01/06/25 21:58 Pulse Oximetry 99 01/07/25 01:53 Oxygen Delivery Method Room Air 01/07/25 01:53 Oxygen Flow Rate 0 01/07/25 01:53 Pain Level 4 01/07/25 02:41 Allergies Penicillins Adverse Reaction (Verified 01/06/25 21:59) yeast infection in mouth & open sores Tetracyclines Adverse Reaction (Verified 01/06/25 21:59) yeast infection in mouth & open sores Active Medications Generic Name Dose Route Start Last Admin Trade Name Freq PRN Reason Stop Dose Admin Acetaminophen 650 mg 01/07/25 02:18 01/07/25 02:41 Acetaminophen 325 Mg Tab PO 650 mg Q4H PRN PRN Administration IV IV Catheter Type [Right Peripheral IV Antecubital] IV Catheter Gauge [Right 18 Antecubital] Diet Orders Category Date Time Status Regular/Normal [DIET] Nutrition 01/07/25 Breakfast Active Diagnostics 01/07/25 01/07/25 01/06/25 Range/Units 05:35 00:55 22:30 WBC Pending 19.16 H (4.4-10.8) 10^3/uL RBC Pending 3.54 L (4.36-5.78) 10^6/uL Hgb Pending 11.3 L (13.5-17.5) g/dL Hct Pending 32.1 L (40.0-50.0) % MCV Pending 91 (80-95) fL MCH Pending 31.9 (27.0-33.0) pg MCHC Pending 35.2 (32.0-36.0) % RDW Pending 13.2 (11.8-14.1) % Plt Count Pending 451 H (130-400) 10^3/uL MPV Pending 7.4 L (8.0-11.0) fL Immature Gran % 0.8 % Neutrophils % 80.1 % Lymphocytes % 9.6 % Monocytes % 9.2 % Eosinophils % 0.2 % Basophils % 0.1 % Nucleated RBC % 0.0 (0.0-0.3) % Absolute Neutrophils 15.35 H (1.2-6.7) 10^3/uL Absolute Lymphocytes 1.84 (1.2-3.4) 10^3/uL Absolute Monocytes 1.76 H (0.1-0.8) 10^3/uL Absolute Eosinophils 0.04 (0.0-0.7) 10^3/uL Absolute Basophils 0.02 (0.0-0.2) 10^3/uL RBC Morphology Normal VBG pH 7.42 H (7.31-7.41) VBG pCO2 41 (41-51) mmHg VBG pO2 27 mmHg VBG HCO3 27 (23-28) mmol/L VBG Total CO2 25 (24-29) mmol/L VBG O2 Saturation 50 % VBG Base Excess 3 (-2-3) mmol/L Sodium Pending 120 L* (136-145) mmol/L Potassium Pending 4.5 (3.5-5.1) mmol/L Chloride Pending 86 L (98-107) mmol/L Carbon Dioxide Pending 27.7 (21.0-32.0) mmol/L Anion Gap Pending 6.3 (3-11) mmol/L BUN Pending 13 (7-18) mg/dL Creatinine Pending 0.7 (0.70-1.30) mg/dL Est GFR (CKD-EPI 2020) Pending 100.37 (mL/min/1.73m2) Glucose Pending 111 H (74-106) mg/dL Calcium Pending 8.9 (8.5-10.1) mg/dL Magnesium Pending 1.9 (1.8-2.4) mg/dL Total Bilirubin Pending 0.4 (0.2-1.0) mg/dL AST Pending 38 H (15-37) U/L ALT Pending 94 H (16-63) U/L Alkaline Phosphatase Pending 167 H (46-116) U/L Troponin I 4 (<or=76) ng/L Total Protein Pending 7.1 (6.4-8.2) g/dL Albumin Pending 3.1 L (3.4-5.0) g/dL COVID-19 Source Nasopharynx SARS-CoV-2 (PCR) Negative (Negative) Influenza Type A (PCR) Negative (Negative) Influenza Type B (PCR) Negative (Negative) RSV (PCR) Negative (Negative) Intake and Output - 24 Hour Total 01/06/25 21:50 thru 01/07/25 01:53 Intake Total 500 Output Total 550 Balance -50 Weight 67.585 kg Intake: IV 500 Output: Urine 550 Other: Urine Appearance Clear # Voids 2 Falls Risk Assessment History of Falls No History 01/07/25 01:53 Contributing Factors No Factors 01/07/25 01:53 Ambulatory Aids Independent 01/07/25 01:53 Tubes/Lines W/no contributing factors 01/07/25 01:53 Gait Evaluation No gait disturbance 01/07/25 01:53 Cognition No cognitive impairment 01/07/25 01:53 Fall Total Score 10 01/07/25 01:53 Level of Risk Standard/Low Risk 09/22/25 01:53 Problems (Last Reviewed 01/07/25 @ 00:28 by Bashir Forte) COPD (chronic obstructive pulmonary disease) (Chronic) Hyponatremia (Acute) Metastatic non-small cell lung cancer (Acute ~07/10/24) Notes 01/06/25 22:40 Nursing Notes by Pat Coburn Nursing Note: Pt stated that since seeing provider he has developed a frontal lobe headache as well left ear pain, as well as wanting to let the provider know that his lymph nodes have been swollen for 1 month. Provider aware Initialized on 01/06/25 22:40 - END OF NOTE v v v v v v v v v Sending and/or Receiving Nurses: Please use comment section below to note any information pertinent to the patient hand-off not included above. Information / Comments: Called ED for report 01:03. ED RN returned call 01:17. Pt reports he has been sniffly for three weeks. Noticed he was SOB this evening (01/06/2025) around 19:00. Has also had decreased appetite for a few days. Hx of significant CA with mets. No infiltrate on imaging, possible esophagitis. Elevated WBC, low Na (120). Given 500 mL bolus NS in ED, then started on NS at 100 mL/hr. BP slightly high (157/78) in ED, occasionally tachycardic. Pt arrived to floor 01:51. Report received from: CHULA Stewart
[2025-01-07] MEDS: Normal Saline 1,000 ML 125 ML IV ×2 (03:29→08:22)
[2025-01-07 06:13] LABS: HCT 31.0 % (40.0-50.0); HGB 10.7 g/dL (13.5-17.5); MCH 31.4 pg (27.0-33.0); MCHC 34.5 % (32.0-36.0); MCV 91 fL (80-95); MPV 7.3 fL (8.0-11.0); Platelet Count 417 10^3/uL (130-400); RBC 3.41 10^6/uL (4.36-5.78); RDW 13.3 % (11.8-14.1); RDW-SD 43.8 fL; WBC 16.32 10^3/uL (4.4-10.8)
[2025-01-07 06:29] LABS: ALT 77 U/L (16-63); AST 28 U/L (15-37); Albumin 2.7 g/dL (3.4-5.0); Alkaline Phosphatase 141 U/L (46-116); Anion Gap 6.8 mmol/L (3-11); BUN 8 mg/dL (7-18); Bilirubin, Total 0.4 mg/dL (0.2-1.0); CO2 26.2 mmol/L (21.0-32.0); Calcium 8.4 mg/dL (8.5-10.1); Chloride 92 mmol/L (98-107); Estimated GFR 105.15 (mL/min/1.73m2); Glucose 108 mg/dL (74-106); Magnesium 1.9 mg/dL (1.8-2.4); Potassium 4.1 mmol/L (3.5-5.1); Sodium 125 mmol/L (136-145); Total Protein 6.4 g/dL (6.4-8.2)
[2025-01-07] MEDS: Enoxaparin 40 MG/0.4 ML SYR SC (08:08)
[2025-01-07] MEDS: Magnesium Oxide 400 MG TAB PO (08:08)
[2025-01-07] MEDS: Calcium 600mg/Vit D 200U TAB 1 TAB PO (08:08)
[2025-01-07] MEDS: Cyanocobalamin 500 MCG TAB 1000 MCG PO (08:08)
[2025-01-07] MEDS: Baclofen 10 MG TAB PO (08:08)
[2025-01-07] MEDS: Budesonide/Formoterol 160/4.5 6 GM 60 PUFF INH IH (08:30)
--- NOTE | 2025-01-07 08:51 | PDOC.CMIN ---
Date of service: 01/07/25 Time of Service: 08:51 Care Management Initial Assmt Initial Assessment Reason for Hospitalization: Hyponatremia Functional Status/Living Situation Town of Residence: [facility] Resides with: Spouse Advance Directives Advance Directives: Do you have an Advance Directive: N 09/15/12, 09:01 AD On File at [facility]: N 09/15/12, 09:01 Date Asked 01/06/25 01/06/25, 21:52 AD Date Reviewed COLST On File at [facility] COLST Date Scanned Code Status Resuscitation Status Full Code Insurance Coverage/Financial Issues Insurance: Medicare Care Team Visit Care Team Role Provider Type Michel Cai MD MD [facility] STAFF PHYSICIAN Munira Lomax NP Primary Care Provider NURSE PRACTITIONER Nikko Jean Baptiste MD Emergency Provider [facility] STAFF PHYSICIAN Bashir Forte Admit Provider NON-[facility] STAFF PHYSICIAN Attending Provider Discharge Potential Discharge Needs: PCP F/U Appt Anticipated Barriers to Discharge: None Identified Patient/Family Education Needs: Review discharge instructions, discuss Ask Me Three Transportation: Private vehicle Plan: Anticipate Adan will be discharged home with no new services when medically ready.. He will follow up with his community providers and plan of care and transport with family. CM will follow and continue to assess for discharge needs.``````````````````````````````` Social Determinants of Health Screening Will the Patient Participate in the Screening?: Declined to provide Problems where you live: no known problems In the past 12 months, have you had to go without electric, gas, oil or water in your home?: no Has lack of transportation kept you from medical appointments or from doing things needed for daily living?: no Has anyone in your life made you feel unsafe or unsupported?: no How hard is it for you to pay for the very basics like food, housing, medical care, and heating? Would you say it is:: Not hard at all Do you want help finding or keeping work or a job?: I do not need or want help If for any reason you need help with day-to-day activities such as bathing, preparing meals, shopping, managing finances, etc., do you get the help you need?: I don?t need any help How often do you feel lonely or isolated from those around you?: Never Do you speak a language other than Macedonian at home?: No Does the patient want assistance with any of the above?: No PFSH All Active Problems (Updated 01/07/25 @ 06:53 by Bashir Forte) Hyponatremia (Acute) Frontal headache (Acute) History of nicotine use (Acute) Intervertebral disc disorder with radiculopathy of lumbar region (Acute) 11/09/24 [facility] [place] Subcutaneous mass of head (Acute) High risk medication use (Acute 07/17/24) [facility] Hem Onc - Raoul Phelan MD Secondary malignant neoplasm of bone (Acute) 07/11/24 [facility] Rad Onc note 08/20/24 f/u [facility] Hem/Onc Metastatic non-small cell lung cancer (Chronic ~07/10/24) [facility] Thoracic Surg 08/20/24 F/U [facility] Hem/Onc Hoarseness, chronic (Acute) Cervical myelopathy (Acute) [facility] Neurosurgery 05/11/24 Axonal neuropathy (Acute) [facility] Neuro 07/21/23 IFG (impaired fasting glucose) (Acute) [facility] Neuro 07/21/23 Spinal stenosis, lumbar region with neurogenic claudication (Acute) [facility] Neurosurgery 06/20/23 Carpal tunnel syndrome on left (Acute) [facility] Neuro 06/10/23 Other spondylosis with radiculopathy, lumbar region (Acute) 05/19/23 Neurology, Dr Dewey. Pt had abnormal MRI lumbar spine Chronic bilateral low back pain with right-sided sciatica (Acute) [facility] Neuro-04/05/23 Cervical disc disorder with radiculopathy, cervicothoracic region (Acute) [facility] Neuro-04/05/23 S/P Laminoplasty 01/25/2024 at [facility] done by Dr.Ji-Suk Harsh Evans 03/09/24 F/U Neurosurgery Bilateral leg pain (Chronic) Peripheral neuropathy; ?PAD, ABIs-->normal 02/2021 (see scanned) Actinic keratosis due to exposure to sunlight (Acute) Derm manages; L helix, L nose Peripheral neuropathy (Chronic) RX Gabapentin Tendon xanthoma (Acute) Right Middle Finger Elevated BP without diagnosis of hypertension (Acute) Basal cell carcinoma (BCC) of left ear (Chronic) Derm manages--L helix (path 08/28/2018); Dr. Cartagena; Dr. Wyatt magaña; wears hat Alcohol abuse (Chronic) Beer; 2-4 servings per day COPD (chronic obstructive pulmonary disease) (Chronic) Long-term hx of nicotine Medical History Snoring No apnea. Tobacco use disorder 2 PPD started in adolescense; quit 07/2024 Tracheal compression DX at [facility] 08/10/2024 Chronic head pain Pressure in head Chronic myofascial pain Head, neck & shoulders Neck and shoulder pain Subcutaneous nodule of head Frontal sinus pain Hyponatremia suspect chronic? 131 x3 in 2020 History of basal cell carcinoma (BCC) Dr. Schneider Spasticity [facility] Neuro Epidermal inclusion cyst Elevated CPK History of sciatica Intermittent since ~; no recent flares History of broken nose Sinusitis ? related to Sinusitis Surgical History S/P bronchoscopy (~09/2024) 09/28/24 Bronchoscopy negative History of bronchoscopy 08/11/2024 by Interventional Pulmonology at [facility] with tumor debulking and placement of a Tracheal Y-stent. 09/25/24 - [facility] Therapeutic suctioning, tissue/tumor debulking and stent removal. H/O cervical spine surgery (~01/2024) C3-6 Laminoplasty [facility] Neurosurgery S/P Mohs surgery for basal cell carcinoma (~04/21/23) L upper helical rim (ear) History of removal of cyst R middle finger; Ramirez History of surgical removal of skin lesion Basal cell L ear Family History Mother Breast cancer Dx'ed late 70s and survived Dementia From dementia Depression Maternal Grandfather Diabetes Grandson No problems noted. Father Unknown family medical history Social History Smoking/Tobacco Use Status: Current every day Tobacco: How many years used: 40 Quit status: not considering quitting Smoking risk assessment performed?: Yes Alcohol Intake: current Alcohol Intake frequency: 0-2 drinks per day Alcohol type: beer Drug use: Never Substance use type: does not use Adopted: No Caregiver/Support person: No Foster care: No Household members: spouse, children and other Details: Lives with (Nelly) and has 3 sons, youngest lives with him Housing: house Number of Children: 3 number of grandchildren: 2 Communication Needs: None and Corrective Lenses Education Level: high school Do you need help understanding health information?: Rarely current occupation: [employer], Self-Employed; [employer] license Pets and animals: Yes (2) Pets and animals: dog(s) Sexually active: Yes Do you think of yourself as: straight/heterosexual Current gender identity: male What is your relationship status?: How often do you talk on the phone with friends or family?: three or more times per week How often do you get together with friends or relatives?: three or more times per week Do you belong to any clubs or organized social groups?: no Panel score (0-1 are the most socially isolated patients): 2 What type of physical activity do you participate in: walking Duration: > 90 minutes/day Frequency: 5-6 times per week Special jonn needs: No Seatbelt use: sometimes Helmet use: No Drive intox or ride w/intox entry driver operator: No Do you feel safe at home: Yes Do you feel safe in your relationship?: Yes
--- NOTE | 2025-01-07 09:56 | DSE_ITS ---
Date of service: 01/07/25 Time of Service: 09:56 DS: Diagnosis Discharge Diagnosis (1) Hyponatremia: Status: Acute (2) Metastatic non-small cell lung cancer: Status: Chronic (3) COPD (chronic obstructive pulmonary disease): Status: Chronic Discharge Plan Disposition Condition: Stable Condition: Good Discharge Details Reason For Visit: Hyponatremia Admit Date/Time: 01/07/25 00:39 Admit Provider: Bashir Forte Attending Provider: Bashir Forte Primary Care Provider: Munira Lomax Hospital Course Hospital Course: Patient initially presented the hospital with concerns for shortness of breath. He remained on room air, and was recently treated with Zithromax and prednisone at home. 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 Patient was asymptomatic. He was given 1 L normal saline in the emergency department, and sodium level on morning labs showed improvement up to 125. Given that patient remains asymptomatic and his sodium level is back to normal it is determined that he was stable for discharge home. Home Meds and New Rx's Prescriptions: Continued magnesium oxide 400 mg magnesium tablet 400 mg PO DAILY pyridoxine (vitamin B6) 500 mg tablet 500 mg PO DAILY cyanocobalamin (vitamin B-12) 1,000 mcg capsule 1,000 mcg PO DAILY Qty: 90 3RF Rx Instructions: For Low-normal Vit B12 acetaminophen 325 mg tablet See Rx Instructions PO Q6H PRN Rx Instructions: Take 3 tablets orally every 6 hours PRN; diazepam 5 mg tablet 5 mg PO Q6H PRN (Reason: muscle spasm) baclofen 10 mg tablet 10 mg PO TID Patient Comments: [place] [facility] [place] albuterol sulfate 90 mcg/actuation HFA aerosol inhaler 2 puff inhalation Q4H PRN (Reason: bronchospasm) Qty: 6.7 1RF Rx Instructions: 2 puffs inhalation Q4H PRN Shortness of breath or wheezing fluticasone propion-salmeterol [Advair HFA] 115-21 mcg/actuation HFA aerosol inhaler See Rx Instructions .ROUTE .COMPLEX Qty: 12 11RF Dose Instruction: INHALE TWO PUFFS BY MOUTH TWICE A DAY FOR COPD Rx Instructions: INHALE TWO PUFFS BY MOUTH TWICE A DAY FOR COPD guaifenesin 1,200 mg tablet extended release 12hr 1,200 mg PO BID sodium chloride 3 % solution for nebulization 4 ml inhalation TID PRN prochlorperazine maleate [Compazine] 10 mg tablet 10 mg PO Q6H PRN ondansetron HCl 8 mg tablet 8 mg PO Q8H calcium carbonate-vitamin D3 600 mg-10 mcg (400 unit) tablet 1 tab PO BID carboplatin/nab-pacltaxel/pembrlizumab IV Patient Comments: 10/22/24 visit Rx Instructions: as directed by HEM/ONc azithromycin 250 mg tablet See Rx Instructions PO .COMPLEX Qty: 6 0RF Rx Instructions: take 500 mg today (day 1), then 250 mg for 4 days (days 2-5) PO prednisone 20 mg tablet 40 mg PO .daily in AM Qty: 10 0RF Rx Instructions: Sinuses and COPD Discharge Instructions Activity:: Activity as Tolerated Equipment/Supplies:: No Equipment Needed Diet:: As Tolerated DS: Summary Time Spent with Patient providing and/or coordinating discharge services: Greater than 30 minutes Status at Discharge Functional status at discharge: independent ambulation Overall status at discharge: patient is back to baseline Mental Status: mental status grossly normal Speech and Movement: speech and movement normal Mood: congruent mood Affect: normal affect Exam Narrative Exam Narrative: Well-appearing gentleman laying in bed in no acute distress, ANO x 4, heart regular rhythm, lungs good auscultation bilaterally, abdomen soft, nontender nondistended Psych Mental Status: mental status grossly normal Speech and Movement: speech and movement normal Mood: congruent mood Affect: normal affect DS: Data Vitals/I&O Vitals and I&O: Vital Signs Temperature 97.5 F L 01/07/25 07:15 Temperature Source Temporal Artery Scan 01/07/25 07:15 Pulse 89 01/07/25 07:15 Pulse Rhythm Regular 01/07/25 01:53 Pulse 91 H 01/07/25 01:15 Respiratory Rate 17 01/07/25 07:15 Respiratory Effort Short of Breath 01/07/25 01:53 Respiratory Depth Normal 01/07/25 01:53 Respiratory Pattern Normal 01/07/25 01:53 Blood Pressure 139/82 01/07/25 07:15 Blood Pressure Mean 101 01/07/25 07:15 Blood Pressure Position Sitting 01/06/25 21:58 Pulse Oximetry 97 01/07/25 07:15 Oxygen Delivery Method Room Air 01/07/25 07:15 Oxygen Flow Rate 0 01/07/25 07:15 Pain Level 2 01/07/25 07:15 Intake & Output 01/06/25 01/07/25 01/07/25 17:59 05:59 17:59 Intake Total 500 / 500 1070.417 / 1070.417 Output Total 875 / 875 1050 / 1050 Balance -375 / -375 20.417 / 20.417 Weight 149 lb Intake: IV 500 / 500 610.417 / 610.417 Oral 460 / 460 Output: Urine 875 / 875 1050 / 1050 Other: Urine Color Pale Yellow Urine Appearance Clear Clear Urine Odor None # Voids 2 Data Completed and Pending Labs on day of discharge: Labs from last 24 hours 01/07/25 01/07/25 01/06/25 06:02 00:55 22:30 WBC 16.32 H 19.16 H RBC 3.41 L 3.54 L Hgb 10.7 L 11.3 L Hct 31.0 L 32.1 L MCV 91 91 MCH 31.4 31.9 MCHC 34.5 35.2 RDW 13.3 13.2 Plt Count 417 H 451 H MPV 7.3 L 7.4 L Immature Gran % 0.8 Neutrophils % 80.1 Lymphocytes % 9.6 Monocytes % 9.2 Eosinophils % 0.2 Basophils % 0.1 Nucleated RBC % 0.0 Absolute Neutrophils 15.35 H Absolute Lymphocytes 1.84 Absolute Monocytes 1.76 H Absolute Eosinophils 0.04 Absolute Basophils 0.02 RBC Morphology Normal VBG pH 7.42 H VBG pCO2 41 VBG pO2 27 VBG HCO3 27 VBG Total CO2 25 VBG O2 Saturation 50 VBG Base Excess 3 Sodium 125 L 120 L* Potassium 4.1 4.5 Chloride 92 L 86 L Carbon Dioxide 26.2 27.7 Anion Gap 6.8 6.3 BUN 8 13 Creatinine 0.6 L 0.7 Est GFR (CKD-EPI 2020) 105.15 100.37 Glucose 108 H 111 H Calcium 8.4 L 8.9 Magnesium 1.9 1.9 Total Bilirubin 0.4 0.4 AST 28 38 H ALT 77 H 94 H Alkaline Phosphatase 141 H 167 H Troponin I 4 Total Protein 6.4 7.1 Albumin 2.7 L 3.1 L COVID-19 Source Nasopharynx SARS-CoV-2 (PCR) Negative Influenza Type A (PCR) Negative Influenza Type B (PCR) Negative RSV (PCR) Negative PFSH All Active Problems (Updated 01/07/25 @ 06:53 by Bashir Forte) Hyponatremia (Acute) Frontal headache (Acute) History of nicotine use (Acute) Intervertebral disc disorder with radiculopathy of lumbar region (Acute) 11/09/24 [facility] Subcutaneous mass of head (Acute) High risk medication use (Acute 07/17/24) [facility] [place]c - Raoul Phelan MD Secondary malignant neoplasm of bone (Acute) 07/11/24 [facility] [place] Onc note 08/20/24 f/u [facility] Hem/Onc Metastatic non-small cell lung cancer (Chronic ~07/10/24) [facility] Thoracic Surg 08/20/24 F/U [facility] Hem/Onc Hoarseness, chronic (Acute) Cervical myelopathy (Acute) [facility] [place] 05/11/24 Axonal neuropathy (Acute) [facility] Neuro 07/21/23 IFG (impaired fasting glucose) (Acute) [facility] [place] 07/21/23 Spinal stenosis, lumbar region with neurogenic claudication (Acute) [facility] [place] 06/20/23 Carpal tunnel syndrome on left (Acute) [facility] Neuro 06/10/23 Other spondylosis with radiculopathy, lumbar region (Acute) 05/19/23 Neurology, Dr Dewey. Pt had abnormal MRI lumbar spine Chronic bilateral low back pain with right-sided sciatica (Acute) [facility] Neuro-04/05/23 Cervical disc disorder with radiculopathy, cervicothoracic region (Acute) [facility] Neuro-04/05/23 S/P Laminoplasty 01/25/2024 at [facility] [place] by Dr.Ji-Suk Harsh Evans 03/09/24 F/U Neurosurgery Bilateral leg pain (Chronic) Peripheral neuropathy; ?PAD, ABIs-->normal 02/2021 (see scanned) Actinic keratosis due to exposure to sunlight (Acute) Derm manages; L helix, L nose Peripheral neuropathy (Chronic) RX Gabapentin Tendon xanthoma (Acute) Right Middle Finger Elevated BP without diagnosis of hypertension (Acute) Basal cell carcinoma (BCC) of left ear (Chronic) Derm manages--L helix (path 08/28/2018); Dr. Cartagena; Dr. Wyatt magaña; wears hat Alcohol abuse (Chronic) Beer; 2-4 servings per day COPD (chronic obstructive pulmonary disease) (Chronic) Long-term hx of nicotine Medical History Snoring No apnea. Tobacco use disorder 2 PPD started in adolescense; quit 07/2024 Tracheal compression DX at [facility] [place]/10/2024 Chronic head pain Pressure in head Chronic myofascial pain Head, neck & shoulders Neck and shoulder pain Subcutaneous nodule of head Frontal sinus pain Hyponatremia suspect chronic? 131 x3 in 2019 History of basal cell carcinoma (BCC) Dr. Schneider Spasticity [facility] Neuro Epidermal inclusion cyst Elevated CPK History of sciatica Intermittent since ~; no recent flares History of broken nose Sinusitis ? related to Sinusitis Surgical History S/P bronchoscopy (~09/2024) 09/28/24 Bronchoscopy negative History of bronchoscopy 08/11/2024 by Interventional Pulmonology at [facility] with tumor debulking and placement of a Tracheal Y-stent. 09/25/24 - [facility] Therapeutic suctioning, tissue/tumor debulking and stent removal. H/O cervical spine surgery (~01/2024) C3-6 Laminoplasty [facility] [place] S/P Mohs surgery for basal cell carcinoma (~04/21/23) L upper helical rim (ear) History of removal of cyst R middle finger; Ramirez History of surgical removal of skin lesion Basal cell L ear Family History Mother Breast cancer Dx'ed late 70s and survived Dementia From dementia Depression Maternal Grandfather Diabetes Grandson No problems noted. Father Unknown family medical history Social History Smoking/Tobacco Use Status: Current every day Tobacco: How many years used: 40 Quit status: not considering quitting Smoking risk assessment performed?: Yes Alcohol Intake: current Alcohol Intake frequency: 0-2 drinks per day Alcohol type: beer Drug use: Never Substance use type: does not use Adopted: No Caregiver/Support person: No Foster care: No Household members: spouse, children and other Details: Lives with (Nelly) and has 3 sons, youngest lives with him Housing: house Number of Children: 3 number of grandchildren: 2 Communication Needs: None and Corrective Lenses Education Level: high school Do you need help understanding health information?: Rarely current occupation: [employer], Self-Employed; [employer] license Pets and animals: Yes (2) Pets and animals: dog(s) Sexually active: Yes Do you think of yourself as: straight/heterosexual Current gender identity: male What is your relationship status?: How often do you talk on the phone with friends or family?: three or more times per week How often do you get together with friends or relatives?: three or more times per week Do you belong to any clubs or organized social groups?: no Panel score (0-1 are the most socially isolated patients): 2 What type of physical activity do you participate in: walking Duration: > 90 minutes/day Frequency: 5-6 times per week Special jonn needs: No Seatbelt use: sometimes Helmet use: No Drive intox or ride w/intox speedboat driver: No Do you feel safe at home: Yes Do you feel safe in your relationship?: Yes Time Spent with Patient Time Spent with Patient: <45 minutes Time was spent: preparing to see the patient(eg.review tests), obtaining and/or reviewing separately otained hiistory, ordering medications,tests, procedures, referring, communicating with other health healthcare receptionist, indepentently interpreting results, counseling the patient and care coordination
--- NOTE | 2025-01-07 12:16 | PDOC.CMPRO ---
Date of service: 01/07/25 Time of Service: 12:16 Care Management Progress Note Progress Note Text Progress Note Text: Adan presented to the ED yesterday evening with c/o shortness of breath. He had been seen by his PCP last week with runny nose, congestion and headache. CXR at that time was negative, and he was prescribed a Z-new, and steroids, which he had not yet completed when he came to the ER. Adan has a hx of metastatic cancer, and is followed by [facility] [place]ology. Labs were drawn- significant for WBC 19.2, platelets 451 and sodium of 120. Prednisone was discontinued, and Adan was admitted to observation to bring his sodium to a safe level - he was started on NS at 100cc/h. Adan's sodium increased to 125 this morning (his baseline is 129) and he was asymptomatic. He was deemed safe for discharge home. Adan was discharged today before CM had a chance to meet with him. Discharge Potential Discharge Needs: PCP F/U Appt Anticipated Barriers to Discharge: None Identified Patient/Family Education Needs: Review discharge instructions, discuss Ask Me Three Transportation: Private vehicle Plan: Adan was discharged home this morning with no new home care services. He will f/u with his PCP and oncology and continue per his plan of care. Adan transported home in a private vehicle. Social Determinants of Health Screening Will the Patient Participate in the Screening?: Declined to provide Problems where you live: no known problems In the past 12 months, have you had to go without electric, gas, oil or water in your home?: no Has lack of transportation kept you from medical appointments or from doing things needed for daily living?: no Has anyone in your life made you feel unsafe or unsupported?: no How hard is it for you to pay for the very basics like food, housing, medical care, and heating? Would you say it is:: Not hard at all Do you want help finding or keeping work or a job?: I do not need or want help If for any reason you need help with day-to-day activities such as bathing, preparing meals, shopping, managing finances, etc., do you get the help you need?: I don?t need any help How often do you feel lonely or isolated from those around you?: Never Do you speak a language other than [place] at home?: No Does the patient want assistance with any of the above?: No
== END 2025-01-07 10:47 | disposition home or self-care (01) ==
LOC: ER 01-07 00:28 → MS 01-07 01:49
PROVIDERS: Admitting Provider Family Medicine; Emergency Provider Emergency Medicine; PCP Nurse Practitioner Adult Health; Responsible Provider Family Medicine; Visit Provider Family Medicine
DX: E22.2 Syndrome of inappropriate secretion of antidiuretic hormone (principal); R06.02 Shortness of breath; Z79.899 Other long term (current) drug therapy; J44.9 Chronic obstructive pulmonary disease, unspecified; C79.51 Secondary malignant neoplasm of bone; M48.062 Spinal stenosis, lumbar region with neurogenic claudication; R73.01 Impaired fasting glucose; G95.89 Other specified diseases of spinal cord; R49.0 Dysphonia; G62.9 Polyneuropathy, unspecified; F10.10 Alcohol abuse, uncomplicated; R51.9 Headache, unspecified; F17.210 Nicotine dependence, cigarettes, uncomplicated; C34.11 Malignant neoplasm of upper lobe, right bronchus or lung
CPT/HCPCS: 00123; 36415; 71275; 74177; 80053; 82805; 85027; 87637; 93005; 94640; 96360; 96361; 96372; 99285; J1650; 83735; 84484; 85025; 93010; 94664; 99236; G0378; J3490

== ENCOUNTER 2025-01-15 12:28 | Emergency (ER) | payer MEDICARE, SELFPAY ==
[2025-01-15 12:31] VITALS: BP 131/83; PULSE 105; RESP 18; TEMP 36.8; O2SAT 96
[2025-01-15 12:35] VITALS: BP 131/83; PULSE 105; RESP 18; TEMP 36.8; O2SAT 96
--- NOTE | 2025-01-15 13:23 | W.ED.GENAD ---
Discharge Plan Disposition Patient Disposition: Home Discharge Details Clinical Impression: Constipation Primary Care Provider: Munira Lomax ED Provider: Bari Sanchez [place] Meds and New Rx's Prescriptions: New sennosides-docusate sodium 8.6-50 mg tablet 1 tab-cap PO BID PRNQty: 14 0RF magnesium hydroxide [Milk Of Magnesia Concentrated] 2,400 mg/10 mL suspension 2.5 ml PO DAILY 2 Days Qty: 5 0RF Continued magnesium oxide 400 mg magnesium tablet 400 mg PO DAILY pyridoxine (vitamin B6) 500 mg tablet 500 mg PO DAILY cyanocobalamin (vitamin B-12) 1,000 mcg capsule 1,000 mcg PO DAILY Qty: 90 3RF Rx Instructions: For Low-normal Vit B12 acetaminophen 325 mg tablet See Rx Instructions PO Q6H PRN Rx Instructions: Take 3 tablets orally every 6 hours PRN; diazepam 5 mg tablet 5 mg PO Q6H PRN (Reason: muscle spasm) baclofen 10 mg tablet 10 mg PO TID Patient Comments: 05/02/24 from [facility] derm note jwo albuterol sulfate 90 mcg/actuation HFA aerosol inhaler 2 puff inhalation Q4H PRN (Reason: bronchospasm) Qty: 6.7 1RF Rx Instructions: 2 puffs inhalation Q4H PRN Shortness of breath or wheezing fluticasone propion-salmeterol [Advair HFA] 115-21 mcg/actuation HFA aerosol inhaler See Rx Instructions .ROUTE .COMPLEX Qty: 12 11RF Dose Instruction: INHALE TWO PUFFS BY MOUTH TWICE A DAY FOR COPD Rx Instructions: INHALE TWO PUFFS BY MOUTH TWICE A DAY FOR COPD guaifenesin 1,200 mg tablet extended release 12hr 1,200 mg PO BID sodium chloride 3 % solution for nebulization 4 ml inhalation TID PRN prochlorperazine maleate [Compazine] 10 mg tablet 10 mg PO Q6H PRN ondansetron HCl 8 mg tablet 8 mg PO Q8H calcium carbonate-vitamin D3 600 mg-10 mcg (400 unit) tablet 1 tab PO BID carboplatin/nab-pacltaxel/pembrlizumab IV Patient Comments: 10/22/24 visit Rx Instructions: as directed by HEM/ONc azithromycin 250 mg tablet See Rx Instructions PO .COMPLEX Qty: 6 0RF Rx Instructions: take 500 mg today (day 1), then 250 mg for 4 days (days 2-5) PO prednisone 20 mg tablet 40 mg PO .daily in AM Qty: 10 0RF Rx Instructions: Sinuses and COPD Discharge Instructions Additional Instructions: You are seen in the emergency department for your constipation. CAT scan showed no sign of any dangerous blockages. As we discussed if you develop abdominal pain do not have a bowel movement in the next 2 to 3 days or if you have any other concerns please return to the emergency department. Otherwise please take these new medications as prescribed. Please drink plenty of water. Please walk is much as possible. Discharge Data Discharge Date/Time-TO BE ENTERED AT DEPARTURE: 01/15/25 17:18 HPI General Date/Time Provider Initiated Documentation: 01/15/25 13:03. HPI Narrative: [facility] This is an uncomfortable appearing normothermic and mildly tachycardic 69-year-old male with opiate use and post op constipation history for the past approximately 8 days since just prior to foraminotomies on 01/09 at [facility] with history of malignancy concerning for the possibility of metastatic disease which patient will undergo a CT abdomen pelvis. No pain out of proportion to suggest necrotizing soft tissue infection. I considered sepsis however the patient denies fevers and back incision appears to be healing well. Tachycardia may be driven by pain. He has no saddle anesthesia to suggest cauda equina syndrome. He has not lost control of his bowels nor bladder so my suspicion for spinal epidural hematoma is low. He has intact pulses in his feet so I am not concerned for critical limb ischemia so I do not feel he requires a CT angiogram of his abdomen pelvis with runoffs. He is not anticoagulated nor complaining of any significant back pain nor fevers so I am not suspicious for spinal epidural abscess so I do not feel he requires an MRI at this point in time. Will obtain basic labs CT abdomen pelvis and reassess. Will ensure patient can ambulate. Concerning patient's right sided head mass he reports that this is chronic and known. 3:[address] scan showing postsurgical changes in the lumbar spine. Large stool burden on CT. Patient is sleeping. He is in no acute distress. He had called [facility] about difficulty walking. He reports no leg pain or stiffness at the moment. Will complete ambulatory trial. I treated him with senna Colace and MiraLAX. I have encouraged him to drink plenty of water. 4:13 PM I spoke with Dr. Cormier from NSG at [facility]. She felt that given his lack of radiating pain that neurogenic bladder was less likely. She felt that his symptoms were most consistent with postoperative illeus. He does not appear to be on any opiates. She advised following bowel regiment: shaylee-colace two tabs BID milk of magnesium daily 4:20 PM I met with the patient. I offered him hospitalization to ensure his constipation resolved. His preference was to be discharged. We discussed that he should return if he developed any worsening abdominal pain could not eat or drink as result of nausea or vomiting or had any other concerns. I also advised that he should return to the ED if he developed any numbness or tingling between his legs any weakness or any loss of his bowels. He passed an ambulatory trial. His tachycardia resolved. He received an enema prior to discharge. 01/16 I called the patient at home. He reported that he had had some minor stool but still felt consipated. He was getting meds from the pharmacy. I advised him to return to the ED if he had any abdominal pain or if he did not receive relief from the outpatient management of his constipation. HPI This is a patient presenting with constipation. The patient has been experiencing constipation since 01/08/2025, with his last bowel movement occurring on the same day. He reports no nausea, vomiting, or abdominal pain. His appetite has decreased, but he has not experienced any loss of bladder control. He is able to walk without difficulty and does not report any numbness or tingling in his legs. He has not made any recent changes to his medication regimen. He has no history of abdominal surgeries and has never undergone a colonoscopy. He also reports no respiratory issues or chest pain. He has not yet attempted any treatments for his constipation. PAST SURGICAL HISTORY: He underwent an L4-L6 procedure on Tuesday of last week. Exam General: Well-appearing in no acute distress speaking in complete sentences. Head: On the right side of the patient's head there is a large approximately 4 x 4 centimeter mass, atraumatic. Eye: Extraocular eye movements intact. No conjunctival injection. No scleral icterus. Ear, nose, mouth, throat: Grossly normal inspection. Normal voice, handling secretions normally. Neck: Trachea midline. Cardiovascular: Well-perfused distal extremities. Regular rate and rhythm Respiratory: Nonlabored respiration. Clear lungs bilaterally. Gastrointestinal: Nondistended abdomen. Soft. Nontender. Musculoskeletal: No edema. Moving all 4 extremities spontaneously. Skin: Normal for age and race, grossly normal temperature and turgor. No acute rash. Neurologic: Alert and appropriate, no apparent acute deficits. Psychiatric: Mood and manner are appropriate. Grooming and personal hygiene are appropriate. Related Data Home Medications ?Medication ?Instructions ?Recorded ?Confirmed cyanocobalamin (vitamin B-12) 1,000 mcg PO DAILY #90 caps 01/19/21 01/15/25 1,000 mcg capsule magnesium oxide 400 mg PO DAILY 11/17/23 01/15/25 pyridoxine (vitamin B6) 500 mg 500 mg PO DAILY 11/17/23 01/15/25 tablet acetaminophen 325 mg tablet See Rx Instructions PO Q6H PRN 01/30/24 01/15/25 diazepam 5 mg tablet 5 mg PO Q6H PRN muscle spasm 01/30/24 01/15/25 baclofen 10 mg tablet 10 mg PO TID 05/02/24 01/15/25 albuterol sulfate 90 mcg/actuation 2 puff inhalation Q4H PRN 08/07/24 01/15/25 aerosol inhaler bronchospasm #6.7 grams Advair HFA 115 mcg-21 See Rx Instructions .Route 08/08/24 01/15/25 mcg/actuation aerosol inhaler .COMPLEX #12 grams (fluticasone propion-salmeterol) guaifenesin 1,200 mg tablet, 1,200 mg PO BID 08/13/24 01/15/25 extended release 12 hr sodium chloride 3 % for 4 ml inhalation TID PRN 08/13/24 01/15/25 nebulization calcium 600 mg (as 1 tab PO BID 08/20/24 01/15/25 carbonate)-vitamin D3 10 mcg (400 unit) tablet ondansetron HCl 8 mg tablet 8 mg PO Q8H 08/20/24 01/15/25 prochlorperazine maleate 10 mg 10 mg PO Q6H PRN 08/20/24 01/15/25 tablet (Compazine) carboplatin/nab-pacltaxel/pembrlizumab IV 10/22/24 01/02/25 azithromycin 250 mg tablet See Rx Instructions PO .COMPLEX #6 01/02/25 01/15/25 tabs prednisone 20 mg tablet 40 mg (2 x 20 mg) PO .daily in AM 01/02/25 01/15/25 #10 tabs magnesium hydroxide 2,400 mg/10 mL 2.5 ml PO DAILY 48 hours #5 mL 01/15/25 oral suspension (Milk Of Magnesia Concentrated) sennosides 8.6 mg-docusate sodium 1 tab-cap PO BID PRN #14 tabs 01/15/25 50 mg tablet Previous Rx's ?Medication ?Instructions ?Recorded cyanocobalamin (vitamin B-12) 1,000 mcg PO DAILY #90 caps 01/19/21 1,000 mcg capsule albuterol sulfate 90 mcg/actuation 2 puff inhalation Q4H PRN 08/07/24 aerosol inhaler bronchospasm #6.7 grams Advair HFA 115 mcg-21 See Rx Instructions .Route 08/08/24 mcg/actuation aerosol inhaler .COMPLEX #12 grams (fluticasone propion-salmeterol) azithromycin 250 mg tablet See Rx Instructions PO .COMPLEX #6 01/02/25 tabs prednisone 20 mg tablet 40 mg (2 x 20 mg) PO .daily in AM 01/02/25 #10 tabs magnesium hydroxide 2,400 mg/10 mL 2.5 ml PO DAILY 48 hours #5 mL 01/15/25 oral suspension (Milk Of Magnesia Concentrated) sennosides 8.6 mg-docusate sodium 1 tab-cap PO BID PRN #14 tabs 01/15/25 50 mg tablet Allergies Allergy/AdvReac Type Severity Reaction Status Date / Time Penicillins AdvReac yeast Verified 01/15/25 12:37 infection in mouth & open sores Tetracyclines AdvReac yeast Verified 01/15/25 12:37 infection in mouth & open sores General Stated Complaint: Abd Prob RONI: 3 Course Vital Signs Vital signs: Vital Signs Temperature 36.8 C 01/15/25 12:31 Pulse 105 H 01/15/25 12:31 Respiratory Rate 18 01/15/25 12:31 Blood Pressure 131/83 01/15/25 12:31 Pulse Oximetry 96 01/15/25 12:31 Temperature 36.8 C 01/15/25 12:31 Temperature Source Tympanic 01/15/25 12:31 Pulse 105 H 01/15/25 12:31 Respiratory Rate 18 01/15/25 12:31 Blood Pressure 131/83 01/15/25 12:31 Pulse Oximetry 96 01/15/25 12:31 Oxygen Delivery Method Room Air 01/15/25 12:31 Oxygen Flow Rate 0 01/15/25 12:31 Pain Level 6 01/15/25 12:31 PFSH All Active Problems (Updated 01/15/25 @ 15:40 by Bari Sanchez MD) Constipation (Acute) Frontal headache (Acute) History of nicotine use (Acute) Intervertebral disc disorder with radiculopathy of lumbar region (Acute) 11/09/24 [facility] Neurosurgery note Subcutaneous mass of head (Acute) High risk medication use (Acute 07/17/24) [facility] Hem Onc - Raoul Phelan MD Secondary malignant neoplasm of bone (Acute) 07/11/24 [facility] Rad Onc note 08/20/24 f/u [facility] Hem/Onc Metastatic non-small cell lung cancer (Chronic ~07/10/24) [facility] Thoracic Surg 08/20/24 F/U [facility] Hem/Onc Hoarseness, chronic (Acute) Cervical myelopathy (Acute) [facility] Neurosurgery 05/11/24 Axonal neuropathy (Acute) [facility] Neuro 07/21/23 IFG (impaired fasting glucose) (Acute) [facility] Neuro 07/21/23 Spinal stenosis, lumbar region with neurogenic claudication (Acute) [facility] Neurosurgery 06/20/23 Carpal tunnel syndrome on left (Acute) [facility] Neuro 06/10/23 Other spondylosis with radiculopathy, lumbar region (Acute) 05/19/23 Neurology, Dr Dewey. Pt had abnormal MRI lumbar spine Chronic bilateral low back pain with right-sided sciatica (Acute) [facility] Neuro-04/05/23 Cervical disc disorder with radiculopathy, cervicothoracic region (Acute) [facility] Neuro-04/05/23 S/P Laminoplasty 01/25/2024 at [facility] done by Dr.Ji-Suk Harsh Evans 03/09/24 F/U Neurosurgery Bilateral leg pain (Chronic) Peripheral neuropathy; ?PAD, ABIs-->normal 02/2021 (see scanned) Actinic keratosis due to exposure to sunlight (Acute) Derm manages; L helix, L nose Peripheral neuropathy (Chronic) RX Gabapentin Tendon xanthoma (Acute) Right Middle Finger Elevated BP without diagnosis of hypertension (Acute) Basal cell carcinoma (BCC) of left ear (Chronic) Derm manages--L helix (path 08/28/2018); Dr. Cartagena; Dr. Wyatt magaña; wears hat Alcohol abuse (Chronic) Beer; 2-4 servings per day COPD (chronic obstructive pulmonary disease) (Chronic) Long-term hx of nicotine Medical History Snoring No apnea. Tobacco use disorder 2 PPD started in adolescense; quit 07/2024 Tracheal compression DX at [facility] 08/10/2024 Chronic head pain Pressure in head Chronic myofascial pain Head, neck & shoulders Neck and shoulder pain Subcutaneous nodule of head Frontal sinus pain Hyponatremia suspect chronic? 131 x3 in 2019 History of basal cell carcinoma (BCC) Dr. Schneider Spasticity [facility] Neuro Epidermal inclusion cyst Elevated CPK History of sciatica Intermittent since ~1980s; no recent flares History of broken nose Sinusitis ? related to Sinusitis Surgical History S/P bronchoscopy (~09/2024) 09/28/24 Bronchoscopy negative History of bronchoscopy 08/11/2024 by Interventional Pulmonology at [facility] with tumor debulking and placement of a Tracheal Y-stent. 09/25/24 - [facility] Therapeutic suctioning, tissue/tumor debulking and stent removal. H/O cervical spine surgery (~01/2024) C3-6 Laminoplasty [facility] Neurosurgery S/P Mohs surgery for basal cell carcinoma (~04/21/23) L upper helical rim (ear) History of removal of cyst R middle finger; Ramirez History of surgical removal of skin lesion Basal cell L ear Family History Mother Breast cancer Dx'ed late 70s and survived Dementia From dementia Depression Maternal Grandfather Diabetes Grandson No problems noted. Father Unknown family medical history Social History Smoking/Tobacco Use Status: Current every day Tobacco: How many years used: 40 Quit status: not considering quitting Smoking risk assessment performed?: Yes Alcohol Intake: current Alcohol Intake frequency: 0-2 drinks per day Alcohol type: beer Drug use: Never Substance use type: does not use Adopted: No Caregiver/Support person: No Foster care: No Household members: spouse, children and other Details: Lives with (Nelly) and has 3 sons, youngest lives with him Housing: house Number of Children: 3 number of grandchildren: 2 Communication Needs: None and Corrective Lenses Education Level: high school Do you need help understanding health information?: Rarely current occupation: [employer], Self-Employed; [employer] license Pets and animals: Yes (2) Pets and animals: dog(s) Sexually active: Yes Do you think of yourself as: straight/heterosexual Current gender identity: male What is your relationship status?: How often do you talk on the phone with friends or family?: three or more times per week How often do you get together with friends or relatives?: three or more times per week Do you belong to any clubs or organized social groups?: no Panel score (0-1 are the most socially isolated patients): 2 What type of physical activity do you participate in: walking Duration: > 90 minutes/day Frequency: 5-6 times per week Special jonn needs: No Seatbelt use: sometimes Helmet use: No Drive intox or ride w/intox driver messenger: No Do you feel safe at home: Yes Do you feel safe in your relationship?: Yes
[2025-01-15 13:56] LABS: Abs Immature Grans 0.19 10^3/uL (0.0-0.06); HCT 32.0 % (40.0-50.0); HGB 10.8 g/dL (13.5-17.5); Immature Grans % 1.2 %; MCH 31.5 pg (27.0-33.0); MCHC 33.8 % (32.0-36.0); MCV 93 fL (80-95); MPV 7.5 fL (8.0-11.0); Platelet Count 562 10^3/uL (130-400); RBC 3.43 10^6/uL (4.36-5.78); RDW 13.2 % (11.8-14.1); RDW-SD 44.9 fL; WBC 15.81 10^3/uL (4.4-10.8)
[2025-01-15] MEDS: Normal Saline Flush 10 ML SYR IVP (14:21)
[2025-01-15] MEDS: Omnipaque 350 MG/ML 100 ML BTL IJ (14:21)
[2025-01-15] MEDS: Normal Saline - Diluent 50 ML VIAL IJ (14:21)
[2025-01-15 14:24] LABS: Anion Gap 9.7 mmol/L (3-11); BUN 12 mg/dL (7-18); CO2 27.3 mmol/L (21.0-32.0); Calcium 8.6 mg/dL (8.5-10.1); Chloride 94 mmol/L (98-107); Estimated GFR 96.40 (mL/min/1.73m2); Glucose 89 mg/dL (74-106); Potassium 4.8 mmol/L (3.5-5.1); Sodium 131 mmol/L (136-145)
--- NOTE | 2025-01-15 14:25 | DI.CT_ITS ---
Exam(s) CT ABDOMEN PELVIS W EXAM: CT ABDOMEN PELVIS W CLINICAL HISTORY: Constipation malignancy history. TECHNIQUE: Imaging Protocol: Axial computed tomography images with coronal and sagittal reformatted images were created and reviewed CONTRAST MATERIAL: Intravenous: Omnipaque 350 Contrast volume:75 ml Oral: no COMPARISON: CT CT CHEST W from 09/24/[address] CHEST PE ABD PELVIS W from 01/06/2025 FINDINGS: ABDOMEN and PELVIS: Lung Bases: Wall thickening of the distal esophagus again noted. Liver: Normal density. No suspicious mass. Gallbladder and biliary tract: No radiodense calculus. No wall thickening or pericholecystic fluid. No biliary dilation. Pancreas: Normal density. No abnormal calcifications or inflammatory process. No evidence of mass. Spleen: Normal. Kidneys: Normal size, contour and axis. No radiodense stones. No obstructive uropathy. No suspicious masses seen. Adrenal glands: No masses seen. Vasculature: Abdominal aorta non-dilated. Soft tissues: There is a small amount of air noted in the posterior soft tissues related to recent back surgery. There is also a fluid collection in the posterior soft tissues from L2 through S1. Bladder: No gross wall thickening. No calculi.No focal mass. Bowel: Large quantity of stool noted throughout colon with some sparing of the sigmoid. No obstruction. No bowel wall thickening. Appendix normal. Peritoneal cavity: No ascites. No focal collection. No mesenteric inflammatory response. No free air. Bones: Recent spine surgery. Are right-sided laminectomy defects at L3 and L4. Severe degenerative changes are again noted in the spine and both hips. Reproductive organs: Unremarkable. Lymph nodes: No pathologically enlarged lymph nodes. IMPRESSION:: Status post surgery at L3-4 and L4-5. Increased soft tissue swelling and fluid in the posterior subcutaneous fat at these levels with residual postsurgical air. Large quantity of stool, consistent with constipation. RADIATION DOSE DELIVERED: Total DLP DATA REPOSITORY: All CT scans at this facility are submitted to the National Radiology Data Registry (NRDR) Dose Index Registry (DIR) with the [employer] (ACR). RADIATION OPTIMIZATION: All CT scans at this facility use at least one of these dose optimization techniques: automated exposure control; mA and/or kV adjustment per patient size (includes targeted exams where dose is matched to clinical indication); or iterative reconstruction.
[2025-01-15] MEDS: Normal Saline 500 ML IV (14:38)
[2025-01-15 15:35] VITALS: PULSE 95
[2025-01-15] MEDS: Polyethylene Glycol 3350 17 GM PACKET PO (15:37)
[2025-01-15] MEDS: Senna TAB 1 TAB PO (15:37)
[2025-01-15] MEDS: Docusate Sodium 100 MG CAP PO (15:37)
[2025-01-15] MEDS: Mineral Oil-Enema 133 ML BTL PR (17:00)
[2025-01-15 17:11] VITALS: BP 126/73; PULSE 96; O2SAT 96
== END 2025-01-15 17:18 | disposition home or self-care (01) ==
PROVIDERS: Emergency Provider Emergency Medicine; PCP Nurse Practitioner Adult Health
DX: K59.00 Constipation, unspecified (principal)
CPT/HCPCS: 99285; 99284; 36415; 80048; 96360; 74177; 85025; J3490

== ENCOUNTER 2025-01-21 03:40 | Outpatient (CLI) | payer MEDICARE, SELFPAY ==
[2025-01-21 12:13] LABS: Abs Immature Grans 0.14 10^3/uL (0.0-0.06); HCT 34.4 % (40.0-50.0); HGB 11.7 g/dL (13.5-17.5); Immature Grans % 0.9 %; MCH 32.0 pg (27.0-33.0); MCHC 34.0 % (32.0-36.0); MCV 94 fL (80-95); MPV 7.7 fL (8.0-11.0); Platelet Count 585 10^3/uL (130-400); RBC 3.66 10^6/uL (4.36-5.78); RDW 13.4 % (11.8-14.1); RDW-SD 46.0 fL; WBC 15.58 10^3/uL (4.4-10.8)
[2025-01-21 12:37] LABS: ALT 143 U/L (16-63); AST 59 U/L (15-37); Albumin 2.6 g/dL (3.4-5.0); Alkaline Phosphatase 811 U/L (46-116); Anion Gap 9.0 mmol/L (3-11); BUN 12 mg/dL (7-18); Bilirubin, Total 0.5 mg/dL (0.2-1.0); CO2 28.0 mmol/L (21.0-32.0); Calcium 9.0 mg/dL (8.5-10.1); Chloride 95 mmol/L (98-107); Estimated GFR 73.12 (mL/min/1.73m2); Glucose 119 mg/dL (74-106); Magnesium 1.9 mg/dL (1.8-2.4); Potassium 4.3 mmol/L (3.5-5.1); Sodium 132 mmol/L (136-145); TSH 1.57 uIU/mL (0.36-3.74); Total Protein 7.0 g/dL (6.4-8.2)
== END 2025-01-21 03:41 | disposition home or self-care (01) ==
LOC: LBO 03:40
PROVIDERS: PCP Nurse Practitioner Adult Health; Visit Provider Internal Medicine Medical Oncology
DX: Z79.899 Other long term (current) drug therapy (principal)
CPT/HCPCS: 36415; 80053; 83735; 84439; 84443; 85025

== ENCOUNTER 2025-02-11 03:10 | Outpatient (CLI) | payer MEDICARE, SELFPAY ==
[2025-02-11 10:44] LABS: Abs Immature Grans 0.11 10^3/uL (0.0-0.06); HCT 32.5 % (40.0-50.0); HGB 10.7 g/dL (13.5-17.5); Immature Grans % 0.7 %; MCH 29.8 pg (27.0-33.0); MCHC 32.9 % (32.0-36.0); MCV 91 fL (80-95); MPV 7.6 fL (8.0-11.0); Platelet Count 535 10^3/uL (130-400); RBC 3.59 10^6/uL (4.36-5.78); RDW 13.8 % (11.8-14.1); RDW-SD 45.9 fL; WBC 14.91 10^3/uL (4.4-10.8)
[2025-02-11 11:12] LABS: ALT 50 U/L (16-63); AST 34 U/L (15-37); Albumin 2.4 g/dL (3.4-5.0); Alkaline Phosphatase 448 U/L (46-116); Anion Gap 8.8 mmol/L (3-11); BUN 10 mg/dL (7-18); Bilirubin, Total 0.4 mg/dL (0.2-1.0); CO2 29.2 mmol/L (21.0-32.0); Calcium 8.9 mg/dL (8.5-10.1); Chloride 92 mmol/L (98-107); Estimated GFR 96.40 (mL/min/1.73m2); Glucose 108 mg/dL (74-106); Magnesium 2.0 mg/dL (1.8-2.4); Potassium 3.9 mmol/L (3.5-5.1); Sodium 130 mmol/L (136-145); TSH 0.41 uIU/mL (0.36-3.74); Total Protein 7.1 g/dL (6.4-8.2)
== END 2025-02-11 03:11 | disposition home or self-care (01) ==
LOC: LBO 03:10
PROVIDERS: PCP Nurse Practitioner Adult Health; Visit Provider Internal Medicine Medical Oncology
DX: Z79.899 Other long term (current) drug therapy (principal); C34.11 Malignant neoplasm of upper lobe, right bronchus or lung
CPT/HCPCS: 36415; 80053; 83735; 84439; 84443; 85025

== ENCOUNTER → 2025-02-26 00:28 | Outpatient (CLI) | payer MEDICARE, SELFPAY ==
--- NOTE | 2025-02-26 | DI.MRI_ITS ---
Exam(s) MR BRAIN WO/W EXAM: MR BRAIN WO/W CLINICAL HISTORY: METS LUNG CA, C34.90, RT SKULL LESION. TECHNIQUE: Multiplanar multisequence MRI of the brain was performed. CONTRAST MATERIAL: IV Contrast: 13 ML of Dotarem contrast administered. COMPARISON: MR MRI BRAIN WWO CONTRAST (GENERIC) from 07/23/2024 CT,PT NM PET CT STANDARD PLUS HEAD AND NECK from 01/04/[address] HEAD WO CONTRAST (STANDARD) from 01/25/2025 FINDINGS: VENTRICLES AND EXTRA AXIAL SPACES: Normal in size and morphology for the patient's age. HEMORRHAGE: None. CEREBRAL PARENCHYMA: Large right parietal skull based mass with erosion and extension through the bone, abutting the dura, with some effacement of the adjacent sulci. There is no adjacent abnormal enhancement in the brain. There are new metastatic lesions noted within the brain parenchyma, in the posterior right parietal lobe measuring 13 millimeters. A 2nd lesion is seen in the left parietal lobe posterior to the lateral ventricle which measures 18 millimeters. Small enhancing lesion in the inferior left parietal lobe measuring 9 millimeters. No focus of restricted diffusion to suggest acute infarct. BRAINSTEM/CEREBELLUM: Normal. CALVARIUM: Large destructive lesion again noted involving the right parietal bone with significant extension superficial to as well as deep to the skull. The mass measures approximately 5.1 by 8.9 x 8.5 cm. There is edema extending inferiorly along the temporal skull extending inferiorly along the left mandible and surrounding muscles. No definite mandibular destruction. There is also postcontrast enhancement within the musculature. VISUALIZED PARANASAL SINUSES/MASTOIDS: Mucosal thickening of the maxillary sinuses. Orbits: Unremarkable. Pituitary: Not enlarged. Vasculature: Normal flow voids. IMPRESSION: Large destructive right parietal skull mass with extension through the skull adjacent to the dura with sulcal effacement. The mass appears appears to have increased in size. There is soft tissue edema and enhancement extending along the parietal skull and right mandible. Three new metastatic lesions are identified, 1 in the posterior superior right parietal lobe and, 1 in the posterior left parietal lobe adjacent to the ventricle and the smaller lesion in the inferior left parietal lobe. New DATA REPOSITORY:
[2025-02-26] MEDS: Gadoterate meglumine 20 ML SYRINGE IVP (09:44)
[2025-02-26] MEDS: Normal Saline Flush 10 ML SYR IVP (09:44)
== END ==
LOC: DI 00:28
PROVIDERS: PCP Nurse Practitioner Adult Health; Visit Provider Internal Medicine Medical Oncology
DX: C34.91 Malignant neoplasm of unspecified part of right bronchus or lung (principal); C79.31 Secondary malignant neoplasm of brain
CPT/HCPCS: 70553

== ENCOUNTER 2025-04-01 00:54 | Outpatient (CLI) | payer MEDICARE, SELFPAY ==
[2025-04-01 09:30] LABS: Abs Immature Grans 0.35 10^3/uL (0.0-0.06); HCT 32.5 % (40.0-50.0); HGB 10.8 g/dL (13.5-17.5); Immature Grans % 1.4 %; MCH 27.3 pg (27.0-33.0); MCHC 33.2 % (32.0-36.0); MCV 82 fL (80-95); MPV 8.3 fL (8.0-11.0); Platelet Count 267 10^3/uL (130-400); RBC 3.95 10^6/uL (4.36-5.78); RDW 17.7 % (11.8-14.1); RDW-SD 52.0 fL
[2025-04-01 09:43] LABS: Magnesium 2.1 mg/dL (1.6-2.6)
[2025-04-01 09:47] LABS: TSH 0.55 uIU/mL (0.55-4.78)
[2025-04-01 10:03] LABS: ALT 53 U/L (10-49); AST 30 U/L (<34); Albumin 3.9 g/dL (3.2-5.0); Alkaline Phosphatase 195 U/L (46-116); Anion Gap 10.8 mmol/L (3-11); BUN 33 mg/dL (9-23); Bilirubin, Total 0.7 mg/dL (0.2-1.2); CO2 22.0 mmol/L (20.0-31.0); Calcium 7.9 mg/dL (8.3-10.6); Chloride 92 mmol/L (98-107); Glucose 160 mg/dL (74-106); Potassium 4.9 mmol/L (3.5-5.1); Sodium 125 mmol/L (136-145); Total Protein 6.6 g/dL (5.7-8.2)
[2025-04-01 10:15] LABS: Anisocytosis 1+; Microcytosis 1+
[2025-04-01 14:16] LABS: WBC 25.63 10^3/uL (4.4-10.8)
== END 2025-04-01 00:55 | disposition home or self-care (01) ==
LOC: LBO 00:54
PROVIDERS: PCP Nurse Practitioner Adult Health; Visit Provider Internal Medicine Medical Oncology
DX: Z79.899 Other long term (current) drug therapy (principal); C34.11 Malignant neoplasm of upper lobe, right bronchus or lung; C79.51 Secondary malignant neoplasm of bone
CPT/HCPCS: 36415; 80053; 83735; 84439; 84443; 85025

== ENCOUNTER → 2025-04-02 08:46 | Outpatient (CLI) | payer MEDICARE, SELFPAY ==
[2025-04-02] MEDS: Barium Sulfate 2% W/V-Berry Smoothie 450 ML BTL PO (07:54)
[2025-04-02] MEDS: Barium Sulfate 2% W/V-Creamy Vanilla Smoothie 450 ML BTL PO (07:54)
[2025-04-02] MEDS: Normal Saline Flush 10 ML SYR IVP (10:17)
[2025-04-02] MEDS: Normal Saline - Diluent 50 ML VIAL IJ (10:17)
--- NOTE | 2025-04-02 10:28 | DI.CT_ITS ---
Exam(s) CT CHEST/ABD/PEL W EXAM: CT CHEST/ABD/PEL W CLINICAL HISTORY: STATGE IV NSCLC RAPID DECLINE, RESTAGING TECHNIQUE: Imaging Protocol: Axial computed tomography images with coronal and sagittal reformatted images were created and reviewed. Lung Computer Aided Detection (CAD) was utilized. CONTRAST MATERIAL: Intravenous: Omnipaque 350 contrast volume:75 mL Oral: Yes COMPARISON: CT CT CHEST PE CTA from 08/10/[address] CHEST W from 09/24/2024 CT,PT NM PET CT STANDARD PLUS HEAD AND NECK from 01/04/[address] CHEST PE ABD PELVIS W from 01/06/[address] ABDOMEN PELVIS W from 01/15/2025 FINDINGS: CHEST: Tracheobronchial tree: The mediastinal mass located to the left of the trachea has decreased in size compared to 08/10/2024. The tracheal stent has been removed. There has been interval dehiscence of the left side of the trachea at the level of the mass. There is communication now between the trachea and the mediastinal mass. No evidence of bronchiectasis. Pulmonary parenchyma: There are new reticular nodular infiltrates in the lower lobes bilaterally. Emphysematous changes are present in the lungs. The scarring in the right upper lobe is unchanged. Visualized thyroid gland: Unremarkable. Mediastinum and Priti: Please see above under tracheobronchial tree. The esophagus is unremarkable. Pleura: No effusion or pneumothorax. Heart: The heart is not dilated. Coronary artery calcifications are present. No pericardial effusion. Pulmonary arteries: No pulmonary emboli are identified. Aorta: Ascending thoracic aorta measures 3.8 x 3.6 cm. Atherosclerotic calcification is present. There is no evidence of dissection. Lymph nodes: There is no axillary adenopathy. Soft tissues: Unremarkable. Bones:Within normal limits for the patient's age. ABDOMEN: Liver: Normal density. There are several new round hypodensities in the liver suspicious for metastatic disease. There is a new 3 x 3 cm hypodense mass in the right lobe of the liver (series 2, image 51). Metastatic deposit is suspected. Portal, Superior Mesenteric, and Splenic Veins: Unremarkable. Gallbladder and Biliary Tract: There is no evidence of cholelithiasis. There has developed mild intrahepatic biliary ductal dilatation. Pancreas: Normal density, no abnormal calcifications or inflammatory process. Spleen: Normal. Adrenals: There is a new mass in the left suprarenal region measuring 9.2 cm craniocaudad by 8.3 cm AP x 6.5 cm transverse. The left adrenal gland is not discretely visualized. This may represent an adrenal hemorrhagic mass/metastasis. The right adrenal gland is stable. Kidneys: Normal size, contour and axis. No radiodense stones or obstructive uropathy. No masses seen. Abdominal Aorta: Abdominal portion non-dilated. Atherosclerotic calcification is present. Bowel: No obstruction or bowel wall thickening. There is stool throughout the colon which may reflect constipation. There is mild thickening of the wall of the distal esophagus. There is no evidence of an appendicitis. Peritoneal Cavity: There is free fluid seen in the left paracolic gutter. There is also fluid seen in the left perinephric soft tissues suspicious for hemorrhage. No free air. Lymph Nodes: Within normal limits. Bones: Within normal limits for the patient's age. There are marked degenerative changes seen in the hips bilaterally. There are partial laminectomies at L4 and L5. Soft Tissues: Unremarkable. PELVIS: Bladder: Symmetric distention, no gross wall thickening. Reproductive Organs: Unremarkable as visualized. Lymph Nodes: Within normal limits. Bones: Within normal limits. IMPRESSION: 1. New dehiscence of the left aspect of the trachea at the level just above the anil. The trachea now communicates with the mediastinal mass. The mass now measures 2.9 x 2.6 cm. It is shown interval decrease in size compared to 08/10/2024. 2. There has been interval development of reticulonodular infiltrates predominantly in the lower lobes of the lungs bilaterally. While infection should be considered, metastatic disease cannot be excluded. 3. New metastatic disease seen in the liver. 4. New 9.2 x 8.3 x 6.5 cm left suprarenal mass. This may represent a adrenal metastasis versus adenopathy. 5. Fluid seen in the left suprarenal and pararenal soft tissues and in the left pericolic gutter concerning for hemorrhage. 6. Findings were discussed with Margarita An at 2:30 p.m. on 04/02/2025. RADIATION DOSE DELIVERED: 533.38mGy.cm Total DLP DATA REPOSITORY: All CT scans at this facility are submitted to the National Radiology Data Registry (NRDR) Dose Index Registry (DIR) with the [employer] (A[employer]). RADIATION OPTIMIZATION: All CT scans at this facility use at least one of these dose optimization techniques: automated exposure control; mA and/or kV adjustment per patient size (includes targeted exams where dose is matched to clinical indication); or iterative reconstruction.
== END ==
LOC: DI 08:46
PROVIDERS: PCP Nurse Practitioner Adult Health; Visit Provider Nurse Practitioner Family
DX: C22.8 Malignant neoplasm of liver, primary, unspecified as to type (principal); C79.31 Secondary malignant neoplasm of brain; R91.8 Other nonspecific abnormal finding of lung field; R93.3 Abnormal findings on diagnostic imaging of other parts of digestive tract
CPT/HCPCS: 74177; 71260